=== PATIENT | female | born 1940 | race Caucasian/White ===

== ENCOUNTER 2019-11-29 12:55 | Inpatient (IN) ==
[2019-11-29] MEDS ORDERED: *HR* Dextrose 50 % in Water (Vial) 50 ML VIAL IVP PRN (23:23)
[2019-11-29] MEDS ORDERED: D5% in Water 1,000 ML IVC PRN (23:23)
[2019-11-29] MEDS ORDERED: Dextrose Gel 15 GM/37.5 ML TUBE PO PRN ×2 (23:23)
[2019-11-30] MEDS: *HR* OxyCODONE/APAP 5/325 TABLET PO PRN ×2 (05:12→13:56)
[2019-11-30 05:32] LABS: Basophils # 0.1 K/mcL (0.0-0.2); Basophils % 0.8 %; Eosinophils # 0.7 K/mcL (0.0-0.6); Eosinophils % 5.5 %; Hematocrit 29.7 % (35.3-44.9); Hemoglobin 9.5 g/dL (11.5-15.4); Immature Granulocytes % 3.6 % (0-4); Lymphocytes # 2.3 K/mcL (0.6-4.6); Lymphocytes % 16.8 %; Mean Corpuscular Hemoglobin 32.3 pg (28.0-33.3); Mean Platelet Volume 10.1 fL (9.4-12.4); Monocytes # 1.8 K/mcL (0.0-1.3); Neutrophils # 8.1 K/mcL (1.6-8.9); Nucleated Red Blood Cells 0.9 /100 WBC (0); Platelet Count 699 K/mcL (140-400); Red Blood Count 2.94 M/mcL (3.82-4.97); Red Cell Distribution Width 15.9 % (11.5-14.5); Segmented Neutrophils % 60.3 %; White Blood Count 13.5 K/mcL (4.3-11.1)
[2019-11-30 05:45] LABS: Calcium 8.7 mg/dL (8.6-10.3); Potassium 5.5 mEq/L (3.5-5.1)
[2019-11-30] MEDS: Primidone 50 MG TABLET PO SCH ×2 (07:54→20:50)
[2019-11-30] MEDS: Amoxicillin 500 MG CAPSULE PO SCH ×2 (07:54→20:50)
[2019-11-30] MEDS: Cholecalciferol (D-3) 1,000 UNIT (25MCG) TABLET PO SCH (07:54)
[2019-11-30] MEDS: Multivit/Ca/Min/Fe/FA 1 TAB TABLET PO SCH (07:54)
[2019-11-30] MEDS: *HR* Glimepiride 4 MG TABLET PO SCH (07:54)
[2019-11-30] MEDS: gemfibroziL 600 MG TABLET PO SCH ×2 (07:55→20:50)
[2019-11-30] MEDS: carvediloL 6.25 MG TABLET PO SCH ×2 (07:55→17:08)
[2019-11-30] MEDS: Folic Acid 1 MG TABLET PO SCH (07:55)
[2019-11-30] MEDS: Aspirin Enteric Coated 81 MG Tablet PO SCH (07:55)
[2019-11-30] MEDS: amLODIPine 5 MG TABLET PO SCH (07:55)
[2019-11-30] MEDS: Cyanocobalamin (B-12) 1,000 MCG TABLET PO SCH (07:56)
[2019-11-30] MEDS: Nystatin SUSP 5 ML UD.LIQ PO SCH ×3 (12:13→20:50)
[2019-11-30] MEDS ORDERED: Bisacodyl 10 MG RECTAL SUPPOSITORY RC PRN (16:08)
[2019-11-30] MEDS ORDERED: Lactulose Oral Soln 20 GM/30 ML UDC PO PRN (16:08)
[2019-11-30] MEDS: polyethylene glycoL 3350 17 GM POWD.PACK PO SCH (17:08)
[2019-11-30] MEDS: Insulin LISPRO 300 UNITS/3 ML VIAL SQ SCH ×2 (17:09→20:51)
[2019-11-30] MEDS: Sennosides/Docusate Sodium TABLET PO SCH (20:42)
[2019-12-01] MEDS: *HR* Enoxaparin 30 MG/0.3 ML SYRINGE SQ SCH (05:45)
[2019-12-01 05:53] LABS: Hematocrit 28.1 % (35.3-44.9); Hemoglobin 9.2 g/dL (11.5-15.4); Mean Corpuscular HGB Conc 32.7 g/dL (31.6-35.5); Mean Corpuscular Hemoglobin 32.7 pg (28.0-33.3); Mean Platelet Volume 9.8 fL (9.4-12.4); Platelet Count 662 K/mcL (140-400); Red Blood Count 2.81 M/mcL (3.82-4.97); Red Cell Distribution Width 15.6 % (11.5-14.5)
[2019-12-01 06:35] LABS: Calcium 8.1 mg/dL (8.6-10.3); Magnesium 1.9 mg/dL (1.6-2.6); Potassium 5.1 mEq/L (3.5-5.1)
[2019-12-01] MEDS: gemfibroziL 600 MG TABLET PO SCH ×2 (08:05→21:06)
[2019-12-01] MEDS: Sennosides/Docusate Sodium TABLET PO SCH ×2 (08:28→21:06)
[2019-12-01] MEDS: *HR* Glimepiride 4 MG TABLET PO SCH (08:28)
[2019-12-01] MEDS: Folic Acid 1 MG TABLET PO SCH (08:28)
[2019-12-01] MEDS: Aspirin Enteric Coated 81 MG Tablet PO SCH (08:28)
[2019-12-01] MEDS: Multivit/Ca/Min/Fe/FA 1 TAB TABLET PO SCH (08:28)
[2019-12-01] MEDS: carvediloL 6.25 MG TABLET PO SCH ×2 (08:28→18:08)
[2019-12-01] MEDS: Cyanocobalamin (B-12) 1,000 MCG TABLET PO SCH (08:28)
[2019-12-01] MEDS: Primidone 50 MG TABLET PO SCH ×2 (08:28→21:06)
[2019-12-01] MEDS: Amoxicillin 500 MG CAPSULE PO SCH (08:28)
[2019-12-01] MEDS: amLODIPine 5 MG TABLET PO SCH (08:29)
[2019-12-01] MEDS: Nystatin SUSP 5 ML UD.LIQ PO SCH ×4 (08:29→21:05)
[2019-12-01] MEDS: *HR* OxyCODONE/APAP 5/325 TABLET PO PRN ×2 (08:29→15:04)
[2019-12-01] MEDS: Cholecalciferol (D-3) 1,000 UNIT (25MCG) TABLET PO SCH (08:29)
[2019-12-01] MEDS: polyethylene glycoL 3350 17 GM POWD.PACK PO SCH (08:30)
[2019-12-01] MEDS: Insulin LISPRO 300 UNITS/3 ML VIAL SQ SCH ×4 (08:51→20:58)
[2019-12-02] MEDS: *HR* Enoxaparin 30 MG/0.3 ML SYRINGE SQ SCH (05:10)
[2019-12-02] MEDS: Insulin LISPRO 300 UNITS/3 ML VIAL SQ SCH ×4 (08:55→21:51)
[2019-12-02] MEDS: Aspirin Enteric Coated 81 MG Tablet PO SCH (09:16)
[2019-12-02] MEDS: Folic Acid 1 MG TABLET PO SCH (09:16)
[2019-12-02] MEDS: Primidone 50 MG TABLET PO SCH ×2 (09:16→21:51)
[2019-12-02] MEDS: amLODIPine 5 MG TABLET PO SCH (09:16)
[2019-12-02] MEDS: polyethylene glycoL 3350 17 GM POWD.PACK PO SCH (09:16)
[2019-12-02] MEDS: gemfibroziL 600 MG TABLET PO SCH ×2 (09:16→21:51)
[2019-12-02] MEDS: *HR* Glimepiride 4 MG TABLET PO SCH (09:16)
[2019-12-02] MEDS: *HR* OxyCODONE/APAP 5/325 TABLET PO PRN ×2 (09:16→14:28)
[2019-12-02] MEDS: Cholecalciferol (D-3) 1,000 UNIT (25MCG) TABLET PO SCH (09:16)
[2019-12-02] MEDS: Nystatin SUSP 5 ML UD.LIQ PO SCH ×4 (09:16→21:50)
[2019-12-02] MEDS: Sennosides/Docusate Sodium TABLET PO SCH ×2 (09:16→21:50)
[2019-12-02] MEDS: Multivit/Ca/Min/Fe/FA 1 TAB TABLET PO SCH (09:17)
[2019-12-02] MEDS: carvediloL 6.25 MG TABLET PO SCH ×2 (09:17→17:48)
[2019-12-02] MEDS: Cyanocobalamin (B-12) 1,000 MCG TABLET PO SCH (09:19)
[2019-12-03] MEDS: *HR* Enoxaparin 30 MG/0.3 ML SYRINGE SQ SCH (05:34)
[2019-12-03 06:04] LABS: Basophils # 0.1 K/mcL (0.0-0.2); Basophils % 0.8 %; Eosinophils # 0.7 K/mcL (0.0-0.6); Eosinophils % 6.8 %; Hematocrit 27.3 % (35.3-44.9); Hemoglobin 8.9 g/dL (11.5-15.4); Immature Granulocytes % 0.7 % (0-4); Lymphocytes # 1.9 K/mcL (0.6-4.6); Lymphocytes % 18.7 %; Mean Corpuscular HGB Conc 32.6 g/dL (31.6-35.5); Mean Corpuscular Hemoglobin 32.7 pg (28.0-33.3); Mean Corpuscular Volume 100.4 fL (83.0-100.0); Mean Platelet Volume 9.7 fL (9.4-12.4); Monocytes # 1.6 K/mcL (0.0-1.3); Monocytes % 15.4 %; Neutrophils # 5.9 K/mcL (1.6-8.9); Nucleated Red Blood Cells 0.4 /100 WBC (0); Platelet Count 651 K/mcL (140-400); Red Blood Count 2.72 M/mcL (3.82-4.97); Red Cell Distribution Width 15.9 % (11.5-14.5); Segmented Neutrophils % 57.6 %; White Blood Count 10.2 K/mcL (4.3-11.1)
[2019-12-03 06:23] LABS: Calcium 8.3 mg/dL (8.6-10.3); Potassium 4.9 mEq/L (3.5-5.1)
[2019-12-03] MEDS: Multivit/Ca/Min/Fe/FA 1 TAB TABLET PO SCH (08:58)
[2019-12-03] MEDS: *HR* Glimepiride 4 MG TABLET PO SCH (08:58)
[2019-12-03] MEDS: Cyanocobalamin (B-12) 1,000 MCG TABLET PO SCH (08:58)
[2019-12-03] MEDS: *HR* OxyCODONE/APAP 5/325 TABLET PO PRN ×3 (08:58→21:51)
[2019-12-03] MEDS: Aspirin Enteric Coated 81 MG Tablet PO SCH (08:59)
[2019-12-03] MEDS: Primidone 50 MG TABLET PO SCH ×2 (08:59→21:51)
[2019-12-03] MEDS: carvediloL 6.25 MG TABLET PO SCH ×2 (08:59→18:27)
[2019-12-03] MEDS: Cholecalciferol (D-3) 1,000 UNIT (25MCG) TABLET PO SCH (08:59)
[2019-12-03] MEDS: amLODIPine 5 MG TABLET PO SCH (08:59)
[2019-12-03] MEDS: Folic Acid 1 MG TABLET PO SCH (08:59)
[2019-12-03] MEDS: Insulin LISPRO 300 UNITS/3 ML VIAL SQ SCH ×4 (08:59→21:51)
[2019-12-03] MEDS: gemfibroziL 600 MG TABLET PO SCH ×2 (08:59→21:51)
[2019-12-03] MEDS: Sennosides/Docusate Sodium TABLET PO SCH ×2 (09:01→21:50)
[2019-12-03] MEDS: polyethylene glycoL 3350 17 GM POWD.PACK PO SCH (09:01)
[2019-12-03] MEDS: Nystatin SUSP 5 ML UD.LIQ PO SCH ×4 (09:01→21:50)
[2019-12-04] MEDS: *HR* Enoxaparin 30 MG/0.3 ML SYRINGE SQ SCH (05:13)
[2019-12-04 06:05] LABS: Hematocrit 28.3 % (35.3-44.9); Hemoglobin 9.1 g/dL (11.5-15.4); Mean Corpuscular HGB Conc 32.2 g/dL (31.6-35.5); Mean Corpuscular Hemoglobin 32.5 pg (28.0-33.3); Mean Corpuscular Volume 101.1 fL (83.0-100.0); Mean Platelet Volume 10.3 fL (9.4-12.4); Platelet Count 698 K/mcL (140-400); Red Cell Distribution Width 15.4 % (11.5-14.5)
[2019-12-04 06:20] LABS: Calcium 8.4 mg/dL (8.6-10.3); Potassium 4.8 mEq/L (3.5-5.1)
[2019-12-04] MEDS: Insulin LISPRO 300 UNITS/3 ML VIAL SQ SCH ×4 (07:47→21:43)
[2019-12-04] MEDS: Cyanocobalamin (B-12) 1,000 MCG TABLET PO SCH (09:24)
[2019-12-04] MEDS: Folic Acid 1 MG TABLET PO SCH (09:25)
[2019-12-04] MEDS: Cholecalciferol (D-3) 1,000 UNIT (25MCG) TABLET PO SCH (09:25)
[2019-12-04] MEDS: amLODIPine 5 MG TABLET PO SCH (09:26)
[2019-12-04] MEDS: Sennosides/Docusate Sodium TABLET PO SCH ×2 (09:26→21:42)
[2019-12-04] MEDS: Aspirin Enteric Coated 81 MG Tablet PO SCH (09:26)
[2019-12-04] MEDS: Primidone 50 MG TABLET PO SCH ×2 (09:26→21:42)
[2019-12-04] MEDS: carvediloL 6.25 MG TABLET PO SCH ×2 (09:26→16:39)
[2019-12-04] MEDS: Multivit/Ca/Min/Fe/FA 1 TAB TABLET PO SCH (09:26)
[2019-12-04] MEDS: *HR* Glimepiride 4 MG TABLET PO SCH (09:27)
[2019-12-04] MEDS: gemfibroziL 600 MG TABLET PO SCH ×2 (09:28→21:42)
[2019-12-04] MEDS: Nystatin SUSP 5 ML UD.LIQ PO SCH ×4 (09:28→21:42)
[2019-12-04] MEDS: polyethylene glycoL 3350 17 GM POWD.PACK PO SCH (09:29)
[2019-12-04] MEDS: *HR* OxyCODONE/APAP 5/325 TABLET PO PRN ×2 (10:27→16:39)
[2019-12-05] MEDS: *HR* OxyCODONE/APAP 5/325 TABLET PO PRN ×3 (04:10→14:08)
[2019-12-05] MEDS: *HR* Enoxaparin 30 MG/0.3 ML SYRINGE SQ SCH (04:12)
[2019-12-05] MEDS: gemfibroziL 600 MG TABLET PO SCH ×2 (09:20→20:56)
[2019-12-05] MEDS: Cholecalciferol (D-3) 1,000 UNIT (25MCG) TABLET PO SCH (09:20)
[2019-12-05] MEDS: Sennosides/Docusate Sodium TABLET PO SCH ×2 (09:20→20:56)
[2019-12-05] MEDS: Primidone 50 MG TABLET PO SCH ×2 (09:20→20:56)
[2019-12-05] MEDS: *HR* Glimepiride 4 MG TABLET PO SCH (09:20)
[2019-12-05] MEDS: Aspirin Enteric Coated 81 MG Tablet PO SCH (09:21)
[2019-12-05] MEDS: Multivit/Ca/Min/Fe/FA 1 TAB TABLET PO SCH (09:21)
[2019-12-05] MEDS: Cyanocobalamin (B-12) 1,000 MCG TABLET PO SCH (09:21)
[2019-12-05] MEDS: Nystatin SUSP 5 ML UD.LIQ PO SCH ×4 (09:21→20:56)
[2019-12-05] MEDS: Folic Acid 1 MG TABLET PO SCH (09:22)
[2019-12-05] MEDS: Insulin LISPRO 300 UNITS/3 ML VIAL SQ SCH ×4 (09:25→20:56)
[2019-12-05] MEDS: carvediloL 6.25 MG TABLET PO SCH ×2 (09:25→18:54)
[2019-12-05] MEDS: amLODIPine 5 MG TABLET PO SCH (09:46)
[2019-12-05] MEDS: polyethylene glycoL 3350 17 GM POWD.PACK PO SCH (09:46)
[2019-12-06] MEDS: Aspirin Enteric Coated 81 MG Tablet PO SCH (07:00)
[2019-12-06] MEDS: amLODIPine 5 MG TABLET PO SCH (07:00)
[2019-12-06] MEDS: Sennosides/Docusate Sodium TABLET PO SCH ×2 (07:00→20:32)
[2019-12-06] MEDS: Cyanocobalamin (B-12) 1,000 MCG TABLET PO SCH (07:01)
[2019-12-06] MEDS: carvediloL 6.25 MG TABLET PO SCH ×2 (07:01→16:32)
[2019-12-06] MEDS: Folic Acid 1 MG TABLET PO SCH (07:01)
[2019-12-06] MEDS: Cholecalciferol (D-3) 1,000 UNIT (25MCG) TABLET PO SCH (07:01)
[2019-12-06] MEDS: Primidone 50 MG TABLET PO SCH ×2 (07:01→20:33)
[2019-12-06] MEDS: *HR* Enoxaparin 30 MG/0.3 ML SYRINGE SQ SCH (07:01)
[2019-12-06] MEDS: Nystatin SUSP 5 ML UD.LIQ PO SCH ×4 (07:01→20:33)
[2019-12-06] MEDS: Multivit/Ca/Min/Fe/FA 1 TAB TABLET PO SCH (07:01)
[2019-12-06] MEDS: gemfibroziL 600 MG TABLET PO SCH ×2 (07:01→20:33)
[2019-12-06] MEDS: *HR* OxyCODONE/APAP 5/325 TABLET PO PRN ×3 (07:02→17:51)
[2019-12-06] MEDS: Insulin LISPRO 300 UNITS/3 ML VIAL SQ SCH ×4 (07:31→20:28)
[2019-12-06] MEDS: polyethylene glycoL 3350 17 GM POWD.PACK PO SCH (07:46)
[2019-12-06] MEDS: *HR* Glimepiride 4 MG TABLET PO SCH (07:46)
[2019-12-07] MEDS: *HR* Enoxaparin 30 MG/0.3 ML SYRINGE SQ SCH (05:01)
[2019-12-07] MEDS: Sennosides/Docusate Sodium TABLET PO SCH ×2 (09:18→21:08)
[2019-12-07] MEDS: gemfibroziL 600 MG TABLET PO SCH ×2 (09:18→21:08)
[2019-12-07] MEDS: Nystatin SUSP 5 ML UD.LIQ PO SCH ×4 (09:19→21:08)
[2019-12-07] MEDS: *HR* Glimepiride 4 MG TABLET PO SCH (09:19)
[2019-12-07] MEDS: amLODIPine 5 MG TABLET PO SCH (09:19)
[2019-12-07] MEDS: carvediloL 6.25 MG TABLET PO SCH ×2 (09:19→17:42)
[2019-12-07] MEDS: Multivit/Ca/Min/Fe/FA 1 TAB TABLET PO SCH (09:19)
[2019-12-07] MEDS: Aspirin Enteric Coated 81 MG Tablet PO SCH (09:19)
[2019-12-07] MEDS: Folic Acid 1 MG TABLET PO SCH (09:19)
[2019-12-07] MEDS: Primidone 50 MG TABLET PO SCH ×2 (09:19→21:08)
[2019-12-07] MEDS: Cyanocobalamin (B-12) 1,000 MCG TABLET PO SCH (09:19)
[2019-12-07] MEDS: polyethylene glycoL 3350 17 GM POWD.PACK PO SCH (09:20)
[2019-12-07] MEDS: Cholecalciferol (D-3) 1,000 UNIT (25MCG) TABLET PO SCH (09:20)
[2019-12-07] MEDS: Insulin LISPRO 300 UNITS/3 ML VIAL SQ SCH ×4 (09:20→21:09)
[2019-12-07] MEDS: *HR* OxyCODONE/APAP 5/325 TABLET PO PRN ×2 (09:59→14:55)
[2019-12-07 14:13] LABS: Bilirubin,Urine Negative (Negative); Blood,Urine Trace-lysed (Negative); Clarity,Urine Clear (Clear); Color,Urine Yellow (Yellow); Glucose,Urine (UA) Normal (Normal); Ketones,Urine Negative (Negative); Leukocyte Esterase,Urine Small (Negative); Nitrite,Urine Negative (Negative); Protein,Urine >=300 mg/dL (Neg-Trace); Specific Gravity,Urine 1.015 (1.010-1.025); Urobilinogen,Urine Normal (Normal)
[2019-12-07 14:15] LABS: RBC,Urine 0-3 per hpf (0-3); WBC,Urine 50-100 per hpf (0-3)
[2019-12-07 14:16] LABS: Bacteria,Urine Moderate per hpf (None-Few); Squamous Epithelial Cell,Urine Few per hpf (None-Few)
[2019-12-07] MEDS: Sulfamethoxazole/Trimeth DS 1 EACH TABLET PO SCH (21:08)
[2019-12-08] MEDS: *HR* Enoxaparin 40 MG/0.4 ML SYRINGE SQ SCH (06:13)
[2019-12-08] MEDS: *HR* Glimepiride 4 MG TABLET PO SCH (10:06)
[2019-12-08] MEDS: Nystatin SUSP 5 ML UD.LIQ PO SCH ×4 (10:06→21:14)
[2019-12-08] MEDS: *HR* OxyCODONE/APAP 5/325 TABLET PO PRN ×2 (10:07→14:15)
[2019-12-08] MEDS: Primidone 50 MG TABLET PO SCH ×2 (10:07→21:14)
[2019-12-08] MEDS: Sennosides/Docusate Sodium TABLET PO SCH ×2 (10:07→21:15)
[2019-12-08] MEDS: Sulfamethoxazole/Trimeth DS 1 EACH TABLET PO SCH ×2 (10:07→21:14)
[2019-12-08] MEDS: Folic Acid 1 MG TABLET PO SCH (10:07)
[2019-12-08] MEDS: carvediloL 6.25 MG TABLET PO SCH ×2 (10:07→18:01)
[2019-12-08] MEDS: amLODIPine 5 MG TABLET PO SCH (10:07)
[2019-12-08] MEDS: Multivit/Ca/Min/Fe/FA 1 TAB TABLET PO SCH (10:07)
[2019-12-08] MEDS: Aspirin Enteric Coated 81 MG Tablet PO SCH (10:09)
[2019-12-08] MEDS: gemfibroziL 600 MG TABLET PO SCH ×2 (10:09→21:14)
[2019-12-08] MEDS: Insulin LISPRO 300 UNITS/3 ML VIAL SQ SCH ×4 (10:09→21:15)
[2019-12-08] MEDS: Cyanocobalamin (B-12) 1,000 MCG TABLET PO SCH (10:09)
[2019-12-08] MEDS: polyethylene glycoL 3350 17 GM POWD.PACK PO SCH (10:11)
[2019-12-08] MEDS: Cholecalciferol (D-3) 1,000 UNIT (25MCG) TABLET PO SCH (10:12)
[2019-12-09] MEDS: *HR* Enoxaparin 40 MG/0.4 ML SYRINGE SQ SCH (05:11)
[2019-12-09 05:18] LABS: Basophils # 0.1 K/mcL (0.0-0.2); Basophils % 1.2 %; Eosinophils # 0.7 K/mcL (0.0-0.6); Eosinophils % 8.3 %; Hemoglobin 9.1 g/dL (11.5-15.4); Immature Granulocytes % 0.6 % (0-4); Lymphocytes # 1.8 K/mcL (0.6-4.6); Mean Corpuscular HGB Conc 32.5 g/dL (31.6-35.5); Mean Corpuscular Hemoglobin 32.6 pg (28.0-33.3); Mean Corpuscular Volume 100.4 fL (83.0-100.0); Mean Platelet Volume 10.2 fL (9.4-12.4); Monocytes # 1.2 K/mcL (0.0-1.3); Monocytes % 14.4 %; Neutrophils # 4.7 K/mcL (1.6-8.9); Nucleated Red Blood Cells 0.2 /100 WBC (0); Platelet Count 710 K/mcL (140-400); Red Blood Count 2.79 M/mcL (3.82-4.97); Red Cell Distribution Width 15.1 % (11.5-14.5); Segmented Neutrophils % 54.5 %; White Blood Count 8.6 K/mcL (4.3-11.1)
[2019-12-09 05:36] LABS: Calcium 8.6 mg/dL (8.6-10.3); Potassium 5.2 mEq/L (3.5-5.1)
[2019-12-09] MEDS: Insulin LISPRO 300 UNITS/3 ML VIAL SQ SCH ×3 (08:24→17:37)
[2019-12-09] MEDS: polyethylene glycoL 3350 17 GM POWD.PACK PO SCH (08:32)
[2019-12-09] MEDS: Cholecalciferol (D-3) 1,000 UNIT (25MCG) TABLET PO SCH (08:33)
[2019-12-09] MEDS: Folic Acid 1 MG TABLET PO SCH (08:33)
[2019-12-09] MEDS: Primidone 50 MG TABLET PO SCH (08:33)
[2019-12-09] MEDS: Sulfamethoxazole/Trimeth DS 1 EACH TABLET PO SCH (08:33)
[2019-12-09] MEDS: Multivit/Ca/Min/Fe/FA 1 TAB TABLET PO SCH (08:33)
[2019-12-09] MEDS: Cyanocobalamin (B-12) 1,000 MCG TABLET PO SCH (08:33)
[2019-12-09] MEDS: *HR* Glimepiride 4 MG TABLET PO SCH (08:33)
[2019-12-09] MEDS: gemfibroziL 600 MG TABLET PO SCH (08:33)
[2019-12-09] MEDS: carvediloL 6.25 MG TABLET PO SCH ×2 (08:34→17:43)
[2019-12-09] MEDS: amLODIPine 5 MG TABLET PO SCH (08:34)
[2019-12-09] MEDS: Aspirin Enteric Coated 81 MG Tablet PO SCH (08:34)
[2019-12-09] MEDS: Nystatin SUSP 5 ML UD.LIQ PO SCH ×3 (08:34→17:43)
[2019-12-09] MEDS: Sennosides/Docusate Sodium TABLET PO SCH (08:34)
[2019-12-09] MEDS: *HR* OxyCODONE/APAP 5/325 TABLET PO PRN ×2 (08:52→13:07)
[2019-12-09] MEDS: Linezolid 600 MG TABLET PO SCH (12:21)
[2019-12-10] MEDS: Sennosides/Docusate Sodium TABLET PO SCH ×3 (00:10→21:22)
[2019-12-10] MEDS: Nystatin SUSP 5 ML UD.LIQ PO SCH ×5 (00:10→21:21)
[2019-12-10] MEDS: Primidone 50 MG TABLET PO SCH ×3 (00:10→21:21)
[2019-12-10] MEDS: Linezolid 600 MG TABLET PO SCH ×3 (00:10→21:20)
[2019-12-10] MEDS: gemfibroziL 600 MG TABLET PO SCH ×3 (00:10→21:21)
[2019-12-10] MEDS: Insulin LISPRO 300 UNITS/3 ML VIAL SQ SCH ×5 (00:10→21:12)
[2019-12-10] MEDS: *HR* Enoxaparin 40 MG/0.4 ML SYRINGE SQ SCH (05:37)
[2019-12-10] MEDS: Cholecalciferol (D-3) 1,000 UNIT (25MCG) TABLET PO SCH (09:34)
[2019-12-10] MEDS: carvediloL 6.25 MG TABLET PO SCH ×2 (09:34→17:39)
[2019-12-10] MEDS: Aspirin Enteric Coated 81 MG Tablet PO SCH (09:34)
[2019-12-10] MEDS: Multivit/Ca/Min/Fe/FA 1 TAB TABLET PO SCH (09:34)
[2019-12-10] MEDS: amLODIPine 5 MG TABLET PO SCH (09:34)
[2019-12-10] MEDS: Folic Acid 1 MG TABLET PO SCH (09:35)
[2019-12-10] MEDS: *HR* Glimepiride 4 MG TABLET PO SCH (09:35)
[2019-12-10] MEDS: Cyanocobalamin (B-12) 1,000 MCG TABLET PO SCH (09:35)
[2019-12-10] MEDS: polyethylene glycoL 3350 17 GM POWD.PACK PO SCH (09:38)
[2019-12-10] MEDS: *HR* OxyCODONE/APAP 5/325 TABLET PO PRN ×2 (10:07→14:47)
[2019-12-10] MEDS ORDERED: Ondansetron ODT 4 MG TAB.RAPDIS SL PRN (10:36)
[2019-12-10 12:19] LABS: Potassium 5.3 mEq/L (3.5-5.1)
[2019-12-11] MEDS: *HR* Enoxaparin 30 MG/0.3 ML SYRINGE SQ SCH (05:34)
[2019-12-11] MEDS: Insulin LISPRO 300 UNITS/3 ML VIAL SQ SCH ×4 (07:50→20:55)
[2019-12-11] MEDS: Cyanocobalamin (B-12) 1,000 MCG TABLET PO SCH (08:03)
[2019-12-11] MEDS: polyethylene glycoL 3350 17 GM POWD.PACK PO SCH (08:03)
[2019-12-11] MEDS: Linezolid 600 MG TABLET PO SCH ×2 (08:03→20:55)
[2019-12-11] MEDS: Aspirin Enteric Coated 81 MG Tablet PO SCH (08:03)
[2019-12-11] MEDS: carvediloL 6.25 MG TABLET PO SCH ×2 (08:03→17:25)
[2019-12-11] MEDS: gemfibroziL 600 MG TABLET PO SCH ×2 (08:03→20:55)
[2019-12-11] MEDS: Primidone 50 MG TABLET PO SCH ×2 (08:03→20:55)
[2019-12-11] MEDS: Nystatin SUSP 5 ML UD.LIQ PO SCH ×4 (08:03→20:55)
[2019-12-11] MEDS: amLODIPine 5 MG TABLET PO SCH (08:04)
[2019-12-11] MEDS: Folic Acid 1 MG TABLET PO SCH (08:04)
[2019-12-11] MEDS: *HR* Glimepiride 4 MG TABLET PO SCH (08:04)
[2019-12-11] MEDS: Cholecalciferol (D-3) 1,000 UNIT (25MCG) TABLET PO SCH (08:04)
[2019-12-11] MEDS: Multivit/Ca/Min/Fe/FA 1 TAB TABLET PO SCH (08:04)
[2019-12-11] MEDS: Sennosides/Docusate Sodium TABLET PO SCH ×2 (08:04→20:55)
[2019-12-11] MEDS: *HR* OxyCODONE/APAP 5/325 TABLET PO PRN ×2 (09:22→14:12)
[2019-12-11 13:02] LABS: Calcium 8.8 mg/dL (8.6-10.3)
[2019-12-12] MEDS: *HR* Enoxaparin 30 MG/0.3 ML SYRINGE SQ SCH (04:41)
[2019-12-12 05:38] LABS: Calcium 8.9 mg/dL (8.6-10.3); Potassium 5.3 mEq/L (3.5-5.1)
[2019-12-12] MEDS: Folic Acid 1 MG TABLET PO SCH (08:45)
[2019-12-12] MEDS: Nystatin SUSP 5 ML UD.LIQ PO SCH ×4 (08:45→21:44)
[2019-12-12] MEDS: Linezolid 600 MG TABLET PO SCH (08:45)
[2019-12-12] MEDS: Sennosides/Docusate Sodium TABLET PO SCH ×2 (08:45→21:44)
[2019-12-12] MEDS: carvediloL 6.25 MG TABLET PO SCH ×2 (08:45→17:06)
[2019-12-12] MEDS: gemfibroziL 600 MG TABLET PO SCH ×2 (08:45→21:44)
[2019-12-12] MEDS: amLODIPine 5 MG TABLET PO SCH (08:45)
[2019-12-12] MEDS: *HR* Glimepiride 4 MG TABLET PO SCH (08:46)
[2019-12-12] MEDS: polyethylene glycoL 3350 17 GM POWD.PACK PO SCH (08:46)
[2019-12-12] MEDS: Aspirin Enteric Coated 81 MG Tablet PO SCH (08:46)
[2019-12-12] MEDS: Cyanocobalamin (B-12) 1,000 MCG TABLET PO SCH (08:46)
[2019-12-12] MEDS: Multivit/Ca/Min/Fe/FA 1 TAB TABLET PO SCH (08:46)
[2019-12-12] MEDS: Insulin LISPRO 300 UNITS/3 ML VIAL SQ SCH ×4 (08:46→21:45)
[2019-12-12] MEDS: *HR* OxyCODONE/APAP 5/325 TABLET PO PRN ×2 (08:46→12:48)
[2019-12-12] MEDS: Primidone 50 MG TABLET PO SCH ×2 (08:46→21:44)
[2019-12-12] MEDS: Cholecalciferol (D-3) 1,000 UNIT (25MCG) TABLET PO SCH (08:47)
[2019-12-12] MEDS ORDERED: SODIUM ZIRCONIUM CYCLOSILICATE 5 GM POWD.PACK PO SCH (10:45)
[2019-12-12] MEDS: Amoxicillin 500 MG CAPSULE PO SCH (17:06)
[2019-12-13] MEDS: Amoxicillin 500 MG CAPSULE PO SCH ×4 (00:55→23:57)
[2019-12-13 05:27] LABS: Hematocrit 29.2 % (35.3-44.9); Hemoglobin 9.4 g/dL (11.5-15.4); Mean Corpuscular HGB Conc 32.2 g/dL (31.6-35.5); Mean Corpuscular Hemoglobin 32.3 pg (28.0-33.3); Mean Corpuscular Volume 100.3 fL (83.0-100.0); Mean Platelet Volume 10.1 fL (9.4-12.4); Platelet Count 663 K/mcL (140-400); Red Blood Count 2.91 M/mcL (3.82-4.97); Red Cell Distribution Width 14.7 % (11.5-14.5)
[2019-12-13 05:41] LABS: Calcium 8.8 mg/dL (8.6-10.3); Magnesium 1.8 mg/dL (1.6-2.6); Potassium 5.2 mEq/L (3.5-5.1)
[2019-12-13] MEDS: *HR* Enoxaparin 30 MG/0.3 ML SYRINGE SQ SCH (05:41)
[2019-12-13] MEDS: Multivit/Ca/Min/Fe/FA 1 TAB TABLET PO SCH (08:23)
[2019-12-13] MEDS: Cholecalciferol (D-3) 1,000 UNIT (25MCG) TABLET PO SCH (08:23)
[2019-12-13] MEDS: gemfibroziL 600 MG TABLET PO SCH ×2 (08:23→20:04)
[2019-12-13] MEDS: *HR* OxyCODONE/APAP 5/325 TABLET PO PRN ×2 (08:24→14:34)
[2019-12-13] MEDS: Primidone 50 MG TABLET PO SCH ×2 (08:24→20:04)
[2019-12-13] MEDS: Folic Acid 1 MG TABLET PO SCH (08:24)
[2019-12-13] MEDS: carvediloL 6.25 MG TABLET PO SCH ×2 (08:24→17:13)
[2019-12-13] MEDS: Nystatin SUSP 5 ML UD.LIQ PO SCH ×4 (08:24→20:04)
[2019-12-13] MEDS: *HR* Glimepiride 4 MG TABLET PO SCH (08:24)
[2019-12-13] MEDS: Aspirin Enteric Coated 81 MG Tablet PO SCH (08:24)
[2019-12-13] MEDS: amLODIPine 5 MG TABLET PO SCH (08:25)
[2019-12-13] MEDS: Cyanocobalamin (B-12) 1,000 MCG TABLET PO SCH (08:25)
[2019-12-13] MEDS: Sennosides/Docusate Sodium TABLET PO SCH ×2 (08:41→20:04)
[2019-12-13] MEDS: polyethylene glycoL 3350 17 GM POWD.PACK PO SCH (08:41)
[2019-12-13] MEDS: Insulin LISPRO 300 UNITS/3 ML VIAL SQ SCH ×4 (08:43→20:04)
[2019-12-13] MEDS: tiZANidine 4 MG TABLET PO SCH (20:04)
[2019-12-14] MEDS: *HR* Enoxaparin 30 MG/0.3 ML SYRINGE SQ SCH (05:38)
[2019-12-14] MEDS: *HR* OxyCODONE/APAP 5/325 TABLET PO PRN ×3 (05:38→12:24)
[2019-12-14] MEDS: Insulin LISPRO 300 UNITS/3 ML VIAL SQ SCH ×4 (07:42→21:17)
[2019-12-14] MEDS: Cholecalciferol (D-3) 1,000 UNIT (25MCG) TABLET PO SCH (09:05)
[2019-12-14] MEDS: Aspirin Enteric Coated 81 MG Tablet PO SCH (09:06)
[2019-12-14] MEDS: Primidone 50 MG TABLET PO SCH ×2 (09:06→21:25)
[2019-12-14] MEDS: carvediloL 6.25 MG TABLET PO SCH ×2 (09:06→16:43)
[2019-12-14] MEDS: Nystatin SUSP 5 ML UD.LIQ PO SCH ×2 (09:06→12:30)
[2019-12-14] MEDS: Multivit/Ca/Min/Fe/FA 1 TAB TABLET PO SCH (09:06)
[2019-12-14] MEDS: *HR* Glimepiride 4 MG TABLET PO SCH (09:06)
[2019-12-14] MEDS: Folic Acid 1 MG TABLET PO SCH (09:06)
[2019-12-14] MEDS: Amoxicillin 500 MG CAPSULE PO SCH ×2 (09:06→15:00)
[2019-12-14] MEDS: polyethylene glycoL 3350 17 GM POWD.PACK PO SCH (09:06)
[2019-12-14] MEDS: Sennosides/Docusate Sodium TABLET PO SCH ×2 (09:06→21:27)
[2019-12-14] MEDS: amLODIPine 5 MG TABLET PO SCH (09:06)
[2019-12-14] MEDS: gemfibroziL 600 MG TABLET PO SCH ×2 (09:06→21:24)
[2019-12-14] MEDS: Cyanocobalamin (B-12) 1,000 MCG TABLET PO SCH (09:06)
[2019-12-14 11:49] LABS: Basophils # 0.1 K/mcL (0.0-0.2); Basophils % 0.9 %; Eosinophils # 0.6 K/mcL (0.0-0.6); Hematocrit 30.1 % (35.3-44.9); Hemoglobin 9.9 g/dL (11.5-15.4); Immature Granulocytes % 0.8 % (0-4); Lymphocytes # 0.8 K/mcL (0.6-4.6); Lymphocytes % 6.4 %; Mean Corpuscular HGB Conc 32.9 g/dL (31.6-35.5); Mean Corpuscular Hemoglobin 32.8 pg (28.0-33.3); Mean Corpuscular Volume 99.7 fL (83.0-100.0); Mean Platelet Volume 10.4 fL (9.4-12.4); Monocytes % 7.9 %; Neutrophils # 10.1 K/mcL (1.6-8.9); Platelet Count 663 K/mcL (140-400); Red Blood Count 3.02 M/mcL (3.82-4.97); White Blood Count 12.8 K/mcL (4.3-11.1)
[2019-12-14 12:20] LABS: Calcium 8.7 mg/dL (8.6-10.3); Potassium 4.8 mEq/L (3.5-5.1)
[2019-12-14] MEDS ORDERED: Fosfomycin Tromethamine 3 GM Packet PO ONE (16:00)
[2019-12-14] MEDS: tiZANidine 4 MG TABLET PO SCH (21:24)
[2019-12-15] MEDS: *HR* Enoxaparin 30 MG/0.3 ML SYRINGE SQ SCH (04:47)
[2019-12-15] MEDS: *HR* OxyCODONE/APAP 5/325 TABLET PO PRN ×4 (05:30→19:59)
[2019-12-15 05:57] LABS: Basophils # 0.1 K/mcL (0.0-0.2); Basophils % 0.9 %; Eosinophils % 10.4 %; Hematocrit 29.8 % (35.3-44.9); Hemoglobin 9.6 g/dL (11.5-15.4); Immature Granulocytes % 0.4 % (0-4); Lymphocytes # 1.6 K/mcL (0.6-4.6); Lymphocytes % 16.3 %; Mean Corpuscular HGB Conc 32.2 g/dL (31.6-35.5); Mean Corpuscular Hemoglobin 32.2 pg (28.0-33.3); Mean Platelet Volume 9.9 fL (9.4-12.4); Monocytes # 1.4 K/mcL (0.0-1.3); Monocytes % 14.3 %; Neutrophils # 5.8 K/mcL (1.6-8.9); Platelet Count 600 K/mcL (140-400); Red Blood Count 2.98 M/mcL (3.82-4.97); Red Cell Distribution Width 14.8 % (11.5-14.5); Segmented Neutrophils % 57.7 %
[2019-12-15 06:31] LABS: Albumin 3.2 g/dL (3.5-5.7); Albumin/Globulin Ratio 1.1 (1.1-2.2); Bilirubin,Total 0.3 mg/dL (0.3-1.0); Calcium 8.9 mg/dL (8.6-10.3); Potassium 4.5 mEq/L (3.5-5.1); Total Protein 6.2 g/dL (6.4-8.9)
[2019-12-15] MEDS: Insulin LISPRO 300 UNITS/3 ML VIAL SQ SCH ×4 (08:52→19:59)
[2019-12-15] MEDS: Primidone 50 MG TABLET PO SCH ×2 (08:54→19:57)
[2019-12-15] MEDS: Cyanocobalamin (B-12) 1,000 MCG TABLET PO SCH (08:54)
[2019-12-15] MEDS: *HR* Glimepiride 4 MG TABLET PO SCH (08:54)
[2019-12-15] MEDS: gemfibroziL 600 MG TABLET PO SCH ×2 (08:54→19:55)
[2019-12-15] MEDS: Cholecalciferol (D-3) 1,000 UNIT (25MCG) TABLET PO SCH (08:54)
[2019-12-15] MEDS: Aspirin Enteric Coated 81 MG Tablet PO SCH (08:54)
[2019-12-15] MEDS: amLODIPine 5 MG TABLET PO SCH (08:54)
[2019-12-15] MEDS: Multivit/Ca/Min/Fe/FA 1 TAB TABLET PO SCH (08:54)
[2019-12-15] MEDS: carvediloL 6.25 MG TABLET PO SCH ×2 (08:55→17:36)
[2019-12-15] MEDS: Folic Acid 1 MG TABLET PO SCH (08:55)
[2019-12-15] MEDS: polyethylene glycoL 3350 17 GM POWD.PACK PO SCH (08:55)
[2019-12-15] MEDS: Sennosides/Docusate Sodium TABLET PO SCH ×2 (08:55→19:57)
[2019-12-15] MEDS: tiZANidine 4 MG TABLET PO SCH (19:57)
[2019-12-16] MEDS: *HR* Enoxaparin 30 MG/0.3 ML SYRINGE SQ SCH (04:48)
[2019-12-16] MEDS: *HR* OxyCODONE/APAP 5/325 TABLET PO PRN ×3 (07:13→17:54)
[2019-12-16] MEDS: Insulin LISPRO 300 UNITS/3 ML VIAL SQ SCH ×4 (07:26→20:27)
[2019-12-16] MEDS: Folic Acid 1 MG TABLET PO SCH (07:37)
[2019-12-16] MEDS: Aspirin Enteric Coated 81 MG Tablet PO SCH (07:37)
[2019-12-16] MEDS: gemfibroziL 600 MG TABLET PO SCH ×2 (07:37→20:36)
[2019-12-16] MEDS: Multivit/Ca/Min/Fe/FA 1 TAB TABLET PO SCH (07:37)
[2019-12-16] MEDS: amLODIPine 5 MG TABLET PO SCH (07:37)
[2019-12-16] MEDS: carvediloL 6.25 MG TABLET PO SCH ×2 (07:38→16:35)
[2019-12-16] MEDS: *HR* Glimepiride 4 MG TABLET PO SCH (07:38)
[2019-12-16] MEDS: Primidone 50 MG TABLET PO SCH ×2 (07:38→20:35)
[2019-12-16] MEDS: Cyanocobalamin (B-12) 1,000 MCG TABLET PO SCH (07:38)
[2019-12-16] MEDS: Cholecalciferol (D-3) 1,000 UNIT (25MCG) TABLET PO SCH (07:38)
[2019-12-16] MEDS: Sennosides/Docusate Sodium TABLET PO SCH ×2 (07:38→20:35)
[2019-12-16] MEDS: polyethylene glycoL 3350 17 GM POWD.PACK PO SCH (07:38)
[2019-12-16] MEDS: tiZANidine 4 MG TABLET PO SCH (20:35)
[2019-12-17] MEDS: *HR* Enoxaparin 30 MG/0.3 ML SYRINGE SQ SCH (04:38)
[2019-12-17] MEDS: polyethylene glycoL 3350 17 GM POWD.PACK PO SCH (08:28)
[2019-12-17] MEDS: *HR* OxyCODONE/APAP 5/325 TABLET PO PRN ×2 (08:28→15:06)
[2019-12-17] MEDS: Cholecalciferol (D-3) 1,000 UNIT (25MCG) TABLET PO SCH (08:28)
[2019-12-17] MEDS: Primidone 50 MG TABLET PO SCH ×2 (08:28→22:45)
[2019-12-17] MEDS: Sennosides/Docusate Sodium TABLET PO SCH ×2 (08:28→22:44)
[2019-12-17] MEDS: Folic Acid 1 MG TABLET PO SCH (08:28)
[2019-12-17] MEDS: carvediloL 6.25 MG TABLET PO SCH ×2 (08:28→17:14)
[2019-12-17] MEDS: amLODIPine 5 MG TABLET PO SCH (08:28)
[2019-12-17] MEDS: gemfibroziL 600 MG TABLET PO SCH ×2 (08:29→22:44)
[2019-12-17] MEDS: Insulin LISPRO 300 UNITS/3 ML VIAL SQ SCH ×4 (08:29→23:08)
[2019-12-17] MEDS: Aspirin Enteric Coated 81 MG Tablet PO SCH (08:29)
[2019-12-17] MEDS: Cyanocobalamin (B-12) 1,000 MCG TABLET PO SCH (08:29)
[2019-12-17] MEDS: *HR* Glimepiride 4 MG TABLET PO SCH (08:29)
[2019-12-17] MEDS: Multivit/Ca/Min/Fe/FA 1 TAB TABLET PO SCH (08:29)
[2019-12-17] MEDS: tiZANidine 4 MG TABLET PO PRN ×2 (11:16→17:14)
[2019-12-17] MEDS: tiZANidine 4 MG TABLET PO SCH (22:42)
[2019-12-18 05:32] LABS: Hematocrit 28.3 % (35.3-44.9); Mean Corpuscular HGB Conc 31.8 g/dL (31.6-35.5); Mean Corpuscular Hemoglobin 31.9 pg (28.0-33.3); Mean Corpuscular Volume 100.4 fL (83.0-100.0); Mean Platelet Volume 9.4 fL (9.4-12.4); Platelet Count 622 K/mcL (140-400); Red Blood Count 2.82 M/mcL (3.82-4.97); Red Cell Distribution Width 14.7 % (11.5-14.5); White Blood Count 11.2 K/mcL (4.3-11.1)
[2019-12-18] MEDS: *HR* Enoxaparin 30 MG/0.3 ML SYRINGE SQ SCH (05:35)
[2019-12-18 05:50] LABS: Calcium 8.8 mg/dL (8.6-10.3); Magnesium 1.8 mg/dL (1.6-2.6)
[2019-12-18] MEDS: Cyanocobalamin (B-12) 1,000 MCG TABLET PO SCH (09:19)
[2019-12-18] MEDS: Folic Acid 1 MG TABLET PO SCH (09:19)
[2019-12-18] MEDS: Cholecalciferol (D-3) 1,000 UNIT (25MCG) TABLET PO SCH (09:20)
[2019-12-18] MEDS: *HR* OxyCODONE/APAP 5/325 TABLET PO PRN ×2 (09:20→19:36)
[2019-12-18] MEDS: *HR* Glimepiride 4 MG TABLET PO SCH (09:20)
[2019-12-18] MEDS: amLODIPine 5 MG TABLET PO SCH (09:20)
[2019-12-18] MEDS: carvediloL 6.25 MG TABLET PO SCH ×2 (09:20→16:31)
[2019-12-18] MEDS: Sennosides/Docusate Sodium TABLET PO SCH (09:20)
[2019-12-18] MEDS: Multivit/Ca/Min/Fe/FA 1 TAB TABLET PO SCH (09:20)
[2019-12-18] MEDS: Aspirin Enteric Coated 81 MG Tablet PO SCH (09:21)
[2019-12-18] MEDS: gemfibroziL 600 MG TABLET PO SCH ×2 (09:21→19:37)
[2019-12-18] MEDS: Insulin LISPRO 300 UNITS/3 ML VIAL SQ SCH ×3 (09:21→16:31)
[2019-12-18] MEDS: polyethylene glycoL 3350 17 GM POWD.PACK PO SCH (09:22)
[2019-12-18] MEDS: Primidone 50 MG TABLET PO SCH ×2 (09:35→19:38)
[2019-12-18] MEDS: tiZANidine 4 MG TABLET PO PRN (13:41)
[2019-12-18] MEDS: tiZANidine 4 MG TABLET PO SCH (23:47)
[2019-12-19] MEDS: Insulin LISPRO 300 UNITS/3 ML VIAL SQ SCH ×5 (01:18→21:09)
[2019-12-19] MEDS: Sennosides/Docusate Sodium TABLET PO SCH ×3 (01:19→21:08)
[2019-12-19] MEDS: *HR* Enoxaparin 30 MG/0.3 ML SYRINGE SQ SCH (05:17)
[2019-12-19] MEDS: Folic Acid 1 MG TABLET PO SCH (09:59)
[2019-12-19] MEDS: Multivit/Ca/Min/Fe/FA 1 TAB TABLET PO SCH (09:59)
[2019-12-19] MEDS: Cholecalciferol (D-3) 1,000 UNIT (25MCG) TABLET PO SCH (09:59)
[2019-12-19] MEDS: Primidone 50 MG TABLET PO SCH ×2 (09:59→21:07)
[2019-12-19] MEDS: amLODIPine 5 MG TABLET PO SCH (09:59)
[2019-12-19] MEDS: *HR* OxyCODONE/APAP 5/325 TABLET PO PRN (09:59)
[2019-12-19] MEDS: carvediloL 6.25 MG TABLET PO SCH ×2 (09:59→17:14)
[2019-12-19] MEDS: Cyanocobalamin (B-12) 1,000 MCG TABLET PO SCH (09:59)
[2019-12-19] MEDS: *HR* Glimepiride 4 MG TABLET PO SCH (09:59)
[2019-12-19] MEDS: polyethylene glycoL 3350 17 GM POWD.PACK PO SCH (10:00)
[2019-12-19] MEDS: Aspirin Enteric Coated 81 MG Tablet PO SCH (10:00)
[2019-12-19] MEDS: gemfibroziL 600 MG TABLET PO SCH ×2 (10:03→21:07)
[2019-12-19] MEDS: tiZANidine 4 MG TABLET PO PRN (13:40)
[2019-12-19] MEDS: tiZANidine 4 MG TABLET PO SCH (21:08)
[2019-12-20] MEDS: *HR* Enoxaparin 30 MG/0.3 ML SYRINGE SQ SCH (05:33)
[2019-12-20] MEDS: Insulin LISPRO 300 UNITS/3 ML VIAL SQ SCH ×4 (07:41→20:08)
[2019-12-20] MEDS: amLODIPine 5 MG TABLET PO SCH (08:19)
[2019-12-20] MEDS: Aspirin Enteric Coated 81 MG Tablet PO SCH (08:19)
[2019-12-20] MEDS: Cyanocobalamin (B-12) 1,000 MCG TABLET PO SCH (08:19)
[2019-12-20] MEDS: carvediloL 6.25 MG TABLET PO SCH ×2 (08:19→17:33)
[2019-12-20] MEDS: *HR* Glimepiride 4 MG TABLET PO SCH (08:19)
[2019-12-20] MEDS: Multivit/Ca/Min/Fe/FA 1 TAB TABLET PO SCH (08:20)
[2019-12-20] MEDS: Primidone 50 MG TABLET PO SCH ×2 (08:20→20:09)
[2019-12-20] MEDS: polyethylene glycoL 3350 17 GM POWD.PACK PO SCH (08:20)
[2019-12-20] MEDS: Cholecalciferol (D-3) 1,000 UNIT (25MCG) TABLET PO SCH (08:20)
[2019-12-20] MEDS: Folic Acid 1 MG TABLET PO SCH (08:20)
[2019-12-20] MEDS: gemfibroziL 600 MG TABLET PO SCH ×2 (08:20→20:09)
[2019-12-20] MEDS: Sennosides/Docusate Sodium TABLET PO SCH ×2 (08:20→20:09)
[2019-12-20] MEDS: tiZANidine 4 MG TABLET PO PRN ×2 (08:27→14:34)
[2019-12-20] MEDS: *HR* OxyCODONE/APAP 5/325 TABLET PO PRN (10:31)
[2019-12-20] MEDS: tiZANidine 4 MG TABLET PO SCH (20:10)
[2019-12-21] MEDS: *HR* Enoxaparin 30 MG/0.3 ML SYRINGE SQ SCH (06:11)
[2019-12-21] MEDS: tiZANidine 4 MG TABLET PO PRN (07:21)
[2019-12-21] MEDS: polyethylene glycoL 3350 17 GM POWD.PACK PO SCH (08:40)
[2019-12-21] MEDS: gemfibroziL 600 MG TABLET PO SCH ×2 (08:41→20:04)
[2019-12-21] MEDS: *HR* Glimepiride 4 MG TABLET PO SCH (08:41)
[2019-12-21] MEDS: Cyanocobalamin (B-12) 1,000 MCG TABLET PO SCH (08:41)
[2019-12-21] MEDS: Cholecalciferol (D-3) 1,000 UNIT (25MCG) TABLET PO SCH (08:41)
[2019-12-21] MEDS: amLODIPine 5 MG TABLET PO SCH (08:41)
[2019-12-21] MEDS: carvediloL 6.25 MG TABLET PO SCH ×2 (08:41→15:56)
[2019-12-21] MEDS: Primidone 50 MG TABLET PO SCH ×2 (08:41→20:03)
[2019-12-21] MEDS: Multivit/Ca/Min/Fe/FA 1 TAB TABLET PO SCH (08:41)
[2019-12-21] MEDS: Insulin LISPRO 300 UNITS/3 ML VIAL SQ SCH ×4 (08:41→20:06)
[2019-12-21] MEDS: Aspirin Enteric Coated 81 MG Tablet PO SCH (08:41)
[2019-12-21] MEDS: Sennosides/Docusate Sodium TABLET PO SCH ×2 (08:41→20:05)
[2019-12-21] MEDS: Folic Acid 1 MG TABLET PO SCH (08:41)
[2019-12-21] MEDS: *HR* OxyCODONE/APAP 5/325 TABLET PO PRN ×3 (11:04→20:03)
[2019-12-21] MEDS: tiZANidine 4 MG TABLET PO SCH (20:04)
[2019-12-22] MEDS: *HR* Enoxaparin 30 MG/0.3 ML SYRINGE SQ SCH (04:37)
[2019-12-22] MEDS: *HR* OxyCODONE/APAP 5/325 TABLET PO PRN (07:34)
[2019-12-22] MEDS: Insulin LISPRO 300 UNITS/3 ML VIAL SQ SCH (07:36)
[2019-12-22 08:02] VITALS: BP 155/81
[2019-12-22] MEDS: carvediloL 6.25 MG TABLET PO SCH (09:17)
[2019-12-22] MEDS: amLODIPine 5 MG TABLET PO SCH (09:17)
[2019-12-22] MEDS: Multivit/Ca/Min/Fe/FA 1 TAB TABLET PO SCH (09:17)
[2019-12-22] MEDS: Cyanocobalamin (B-12) 1,000 MCG TABLET PO SCH (09:18)
[2019-12-22] MEDS: Aspirin Enteric Coated 81 MG Tablet PO SCH (09:18)
[2019-12-22] MEDS: *HR* Glimepiride 4 MG TABLET PO SCH (09:18)
[2019-12-22] MEDS: gemfibroziL 600 MG TABLET PO SCH (09:18)
[2019-12-22] MEDS: Sennosides/Docusate Sodium TABLET PO SCH (09:18)
[2019-12-22] MEDS: Cholecalciferol (D-3) 1,000 UNIT (25MCG) TABLET PO SCH (09:18)
[2019-12-22] MEDS: Primidone 50 MG TABLET PO SCH (09:18)
[2019-12-22] MEDS: polyethylene glycoL 3350 17 GM POWD.PACK PO SCH (09:20)
[2019-12-22] MEDS: Folic Acid 1 MG TABLET PO SCH (09:20)
[2019-12-22] MEDS: tiZANidine 4 MG TABLET PO PRN (11:50)
== END 2019-12-22 12:09 | disposition home health service (06) | DRG 560 ==
LOC: INPGRE 21:58 → UNDODISIN 12-06 11:51
PROVIDERS: ADMIT Family Medicine; ATTEND Family Medicine

== ENCOUNTER 2020-03-14 17:32 | Inpatient (IN) ==
[2020-03-15] MEDS ORDERED: tiZANidine 4 MG TABLET PO PRN (18:45)
[2020-03-15] MEDS ORDERED: Benzonatate 100 MG CAPSULE PO PRN (18:45)
[2020-03-15] MEDS ORDERED: *HR* Dextrose 50 % in Water (Vial) 50 ML VIAL IVP PRN (19:04)
[2020-03-15] MEDS ORDERED: D5% in Water 1,000 ML IVC PRN (19:04)
[2020-03-15] MEDS ORDERED: Dextrose Gel 15 GM/37.5 ML TUBE PO PRN ×2 (19:04)
[2020-03-15] MEDS: Apixaban 5 MG TABLET PO SCH (21:19)
[2020-03-15] MEDS: gemfibroziL 600 MG TABLET PO SCH (21:20)
[2020-03-15] MEDS: Insulin LISPRO 300 UNITS/3 ML VIAL SQ SCH (21:49)
[2020-03-16 05:46] LABS: Basophils # 0.1 K/mcL (0.0-0.2); Basophils % 0.4 %; Eosinophils % 0.9 %; Hematocrit 34.2 % (35.3-44.9); Hemoglobin 10.9 g/dL (11.5-15.4); Immature Granulocytes % 1.5 % (0-4); Lymphocytes # 1.9 K/mcL (0.6-4.6); Lymphocytes % 11.9 %; Mean Corpuscular HGB Conc 31.9 g/dL (31.6-35.5); Mean Corpuscular Hemoglobin 31.3 pg (28.0-33.3); Mean Corpuscular Volume 98.3 fL (83.0-100.0); Mean Platelet Volume 10.5 fL (9.4-12.4); Monocytes # 1.7 K/mcL (0.0-1.3); Monocytes % 10.5 %; Neutrophils # 12.1 K/mcL (1.6-8.9); Nucleated Red Blood Cells 0.1 /100 WBC (0); Platelet Count 694 K/mcL (140-400); Red Blood Count 3.48 M/mcL (3.82-4.97); Red Cell Distribution Width 14.7 % (11.5-14.5); Segmented Neutrophils % 74.8 %; White Blood Count 16.2 K/mcL (4.3-11.1)
[2020-03-16 05:48] LABS: Eosinophils # 0.2 K/mcL (0.0-0.6)
[2020-03-16 05:58] LABS: Albumin 2.8 g/dL (3.5-5.7); Albumin/Globulin Ratio 0.8 (1.1-2.2); Bilirubin,Total 0.2 mg/dL (0.3-1.0); Calcium 8.9 mg/dL (8.6-10.3); Globulin 3.4 g/dL (2.4-3.5); Magnesium 1.6 mg/dL (1.6-2.6); Potassium 4.5 mEq/L (3.5-5.1); Total Protein 6.2 g/dL (6.4-8.9)
[2020-03-16] MEDS: Cholecalciferol (D-3) 1,000 UNIT (25MCG) TABLET PO SCH (09:03)
[2020-03-16] MEDS: Aspirin Enteric Coated 81 MG Tablet PO SCH (09:03)
[2020-03-16] MEDS: Apixaban 5 MG TABLET PO SCH ×2 (09:04→20:32)
[2020-03-16] MEDS: Primidone 50 MG TABLET PO SCH (09:04)
[2020-03-16] MEDS: *HR* Glimepiride 4 MG TABLET PO SCH (09:04)
[2020-03-16] MEDS: Folic Acid 1 MG TABLET PO SCH (09:04)
[2020-03-16] MEDS: gemfibroziL 600 MG TABLET PO SCH ×2 (09:04→20:32)
[2020-03-16] MEDS: Multivit/Ca/Min/Fe/FA 1 TAB TABLET PO SCH (09:04)
[2020-03-16] MEDS: Insulin LISPRO 300 UNITS/3 ML VIAL SQ SCH ×4 (09:05→20:33)
[2020-03-16] MEDS: Cyanocobalamin (B-12) 1,000 MCG TABLET PO SCH (11:22)
[2020-03-16] MEDS: Acetaminophen 325 MG TABLET PO PRN (17:12)
[2020-03-17] MEDS: *HR* Glimepiride 4 MG TABLET PO SCH (08:38)
[2020-03-17] MEDS: Insulin LISPRO 300 UNITS/3 ML VIAL SQ SCH ×4 (08:38→21:10)
[2020-03-17 08:45] LABS: Basophils # 0.1 K/mcL (0.0-0.2); Basophils % 0.4 %; Eosinophils % 0.2 %; Hematocrit 32.9 % (35.3-44.9); Hemoglobin 10.5 g/dL (11.5-15.4); Lymphocytes # 1.1 K/mcL (0.6-4.6); Lymphocytes % 6.7 %; Mean Corpuscular HGB Conc 31.9 g/dL (31.6-35.5); Mean Corpuscular Hemoglobin 31.5 pg (28.0-33.3); Mean Corpuscular Volume 98.8 fL (83.0-100.0); Mean Platelet Volume 10.6 fL (9.4-12.4); Monocytes # 1.3 K/mcL (0.0-1.3); Monocytes % 8.2 %; Neutrophils # 13.3 K/mcL (1.6-8.9); Nucleated Red Blood Cells 0.1 /100 WBC (0); Platelet Count 742 K/mcL (140-400); Red Blood Count 3.33 M/mcL (3.82-4.97); Red Cell Distribution Width 14.8 % (11.5-14.5); Segmented Neutrophils % 82.5 %; White Blood Count 16.1 K/mcL (4.3-11.1)
[2020-03-17] MEDS: Aspirin Enteric Coated 81 MG Tablet PO SCH (08:45)
[2020-03-17] MEDS: Primidone 50 MG TABLET PO SCH (08:46)
[2020-03-17] MEDS: gemfibroziL 600 MG TABLET PO SCH ×2 (08:46→19:57)
[2020-03-17] MEDS: Cyanocobalamin (B-12) 1,000 MCG TABLET PO SCH (08:46)
[2020-03-17] MEDS: Folic Acid 1 MG TABLET PO SCH (08:46)
[2020-03-17] MEDS: Multivit/Ca/Min/Fe/FA 1 TAB TABLET PO SCH (08:46)
[2020-03-17] MEDS: Acetaminophen 325 MG TABLET PO PRN ×2 (08:46→19:56)
[2020-03-17] MEDS: Apixaban 5 MG TABLET PO SCH ×2 (08:46→19:56)
[2020-03-17] MEDS: Cholecalciferol (D-3) 1,000 UNIT (25MCG) TABLET PO SCH (08:47)
[2020-03-17 09:06] LABS: Calcium 8.5 mg/dL (8.6-10.3); Potassium 4.6 mEq/L (3.5-5.1)
[2020-03-17 19:42] LABS: Bilirubin,Urine Negative (Negative); Blood,Urine Small (Negative); Clarity,Urine Clear (Clear); Color,Urine Yellow (Yellow); Glucose,Urine (UA) 100 mg/dL (Normal); Ketones,Urine Negative (Negative); Leukocyte Esterase,Urine Negative (Negative); Nitrite,Urine Negative (Negative); Protein,Urine >=300 mg/dL (Neg-Trace); Specific Gravity,Urine >= 1.030 (1.010-1.025); Urobilinogen,Urine Normal (Normal)
[2020-03-17 19:53] LABS: Bacteria,Urine Few per hpf (None-Few); Hyaline Casts,Urine Moderate per lpf (None Seen); RBC,Urine 0-3 per hpf (0-3); Squamous Epithelial Cell,Urine Few per hpf (None-Few); WBC,Urine 0-3 per hpf (0-3)
[2020-03-17] MEDS: levoFLOXacin 750 MG/150 ML 750 MG/150 ML BAG IVPB SCH (21:27)
[2020-03-18 06:34] LABS: Basophils # 0.1 K/mcL (0.0-0.2); Basophils % 0.7 %; Eosinophils # 0.1 K/mcL (0.0-0.6); Eosinophils % 0.7 %; Hematocrit 33.5 % (35.3-44.9); Hemoglobin 10.7 g/dL (11.5-15.4); Lymphocytes # 1.4 K/mcL (0.6-4.6); Lymphocytes % 9.2 %; Mean Corpuscular HGB Conc 31.9 g/dL (31.6-35.5); Mean Corpuscular Hemoglobin 31.2 pg (28.0-33.3); Mean Corpuscular Volume 97.7 fL (83.0-100.0); Mean Platelet Volume 10.8 fL (9.4-12.4); Monocytes # 1.4 K/mcL (0.0-1.3); Monocytes % 9.3 %; Neutrophils # 11.6 K/mcL (1.6-8.9); Platelet Count 675 K/mcL (140-400); Red Blood Count 3.43 M/mcL (3.82-4.97); Red Cell Distribution Width 14.6 % (11.5-14.5); Segmented Neutrophils % 75.1 %; White Blood Count 15.5 K/mcL (4.3-11.1)
[2020-03-18 06:53] LABS: Calcium 8.5 mg/dL (8.6-10.3); Potassium 5.1 mEq/L (3.5-5.1)
[2020-03-18] MEDS: Insulin LISPRO 300 UNITS/3 ML VIAL SQ SCH ×4 (08:25→19:52)
[2020-03-18] MEDS: Cholecalciferol (D-3) 1,000 UNIT (25MCG) TABLET PO SCH (08:32)
[2020-03-18] MEDS: Multivit/Ca/Min/Fe/FA 1 TAB TABLET PO SCH (08:32)
[2020-03-18] MEDS: Acetaminophen 325 MG TABLET PO PRN ×2 (08:32→20:12)
[2020-03-18] MEDS: Primidone 50 MG TABLET PO SCH (08:33)
[2020-03-18] MEDS: Folic Acid 1 MG TABLET PO SCH (08:33)
[2020-03-18] MEDS: Aspirin Enteric Coated 81 MG Tablet PO SCH (08:33)
[2020-03-18] MEDS: Apixaban 5 MG TABLET PO SCH ×2 (08:33→19:58)
[2020-03-18] MEDS: Cyanocobalamin (B-12) 1,000 MCG TABLET PO SCH (08:33)
[2020-03-18] MEDS: gemfibroziL 600 MG TABLET PO SCH ×2 (08:33→19:58)
[2020-03-18] MEDS: levoFLOXacin 750 MG/150 ML 750 MG/150 ML BAG IVPB SCH (08:33)
[2020-03-18] MEDS ORDERED: levoFLOXacin 750 MG/150 ML 750 MG/150 ML BAG IVPB SCH (18:30)
[2020-03-19] MEDS: Acetaminophen 325 MG TABLET PO PRN ×2 (05:14→18:36)
[2020-03-19] MEDS: Insulin LISPRO 300 UNITS/3 ML VIAL SQ SCH ×4 (09:07→21:13)
[2020-03-19] MEDS: Cholecalciferol (D-3) 1,000 UNIT (25MCG) TABLET PO SCH (09:08)
[2020-03-19] MEDS: Apixaban 5 MG TABLET PO SCH ×2 (09:09→21:12)
[2020-03-19] MEDS: Cyanocobalamin (B-12) 1,000 MCG TABLET PO SCH (09:09)
[2020-03-19] MEDS: Aspirin Enteric Coated 81 MG Tablet PO SCH (09:09)
[2020-03-19] MEDS: Multivit/Ca/Min/Fe/FA 1 TAB TABLET PO SCH (09:09)
[2020-03-19] MEDS: Primidone 50 MG TABLET PO SCH (09:10)
[2020-03-19] MEDS: Folic Acid 1 MG TABLET PO SCH (09:10)
[2020-03-19] MEDS: gemfibroziL 600 MG TABLET PO SCH ×2 (09:10→21:12)
[2020-03-19 11:33] LABS: Basophils # 0.1 K/mcL (0.0-0.2); Basophils % 0.8 %; Eosinophils % 0.1 %; Hematocrit 29.4 % (35.3-44.9); Hemoglobin 9.5 g/dL (11.5-15.4); Immature Granulocytes % 6.9 % (0-4); Lymphocytes # 1.2 K/mcL (0.6-4.6); Lymphocytes % 7.7 %; Mean Corpuscular HGB Conc 32.3 g/dL (31.6-35.5); Mean Corpuscular Hemoglobin 31.7 pg (28.0-33.3); Mean Platelet Volume 10.2 fL (9.4-12.4); Monocytes % 6.6 %; Nucleated Red Blood Cells 0.2 /100 WBC (0); Platelet Count 768 K/mcL (140-400); Red Cell Distribution Width 14.6 % (11.5-14.5); Segmented Neutrophils % 77.9 %; White Blood Count 15.6 K/mcL (4.3-11.1)
[2020-03-19 11:37] LABS: Neutrophils # 12.2 K/mcL (1.6-8.9)
[2020-03-19 11:44] LABS: Calcium 8.5 mg/dL (8.6-10.3); Potassium 4.5 mEq/L (3.5-5.1)
[2020-03-19 11:54] LABS: Platelet Estimate Increased (Normal)
[2020-03-19 11:55] LABS: Howell-Jolly Bodies 1+ (Not Present)
[2020-03-19 12:57] LABS: Albumin 2.4 g/dL (3.5-5.7); Albumin/Globulin Ratio 0.8 (1.1-2.2); Bilirubin,Indirect 0.2 mg/dL (0.0-1.0); Bilirubin,Total 0.2 mg/dL (0.3-1.0); Total Protein 5.4 g/dL (6.4-8.9)
[2020-03-20] MEDS: Insulin LISPRO 300 UNITS/3 ML VIAL SQ SCH ×4 (09:14→20:51)
[2020-03-20] MEDS: Aspirin Enteric Coated 81 MG Tablet PO SCH (09:23)
[2020-03-20] MEDS: Cholecalciferol (D-3) 1,000 UNIT (25MCG) TABLET PO SCH (09:24)
[2020-03-20] MEDS: Folic Acid 1 MG TABLET PO SCH (09:24)
[2020-03-20] MEDS: gemfibroziL 600 MG TABLET PO SCH ×2 (09:24→20:51)
[2020-03-20] MEDS: Cyanocobalamin (B-12) 1,000 MCG TABLET PO SCH (09:24)
[2020-03-20] MEDS: Apixaban 5 MG TABLET PO SCH ×2 (09:24→20:51)
[2020-03-20] MEDS: Primidone 50 MG TABLET PO SCH (09:25)
[2020-03-20] MEDS: Multivit/Ca/Min/Fe/FA 1 TAB TABLET PO SCH (09:25)
[2020-03-20] MEDS: levoFLOXacin 750 MG/150 ML 750 MG/150 ML BAG IVPB SCH (09:25)
[2020-03-20] MEDS: Ipratropium/Albuterol Neb 3 ML IH SCH ×3 (11:23→22:29)
[2020-03-20] MEDS: Acetaminophen 325 MG TABLET PO PRN (21:12)
[2020-03-21] MEDS: Ipratropium/Albuterol Neb 3 ML IH SCH ×3 (04:07→15:05)
[2020-03-21 05:44] LABS: Hematocrit 30.8 % (35.3-44.9); Mean Corpuscular HGB Conc 32.5 g/dL (31.6-35.5); Mean Corpuscular Hemoglobin 31.5 pg (28.0-33.3); Mean Corpuscular Volume 97.2 fL (83.0-100.0); Mean Platelet Volume 10.2 fL (9.4-12.4); Platelet Count 810 K/mcL (140-400); Red Blood Count 3.17 M/mcL (3.82-4.97); Red Cell Distribution Width 14.6 % (11.5-14.5); White Blood Count 23.3 K/mcL (4.3-11.1)
[2020-03-21 05:57] LABS: Calcium 8.8 mg/dL (8.6-10.3); Magnesium 1.5 mg/dL (1.6-2.6); Potassium 5.3 mEq/L (3.5-5.1)
[2020-03-21] MEDS: gemfibroziL 600 MG TABLET PO SCH ×2 (08:17→21:49)
[2020-03-21] MEDS: Insulin LISPRO 300 UNITS/3 ML VIAL SQ SCH ×4 (08:17→21:09)
[2020-03-21] MEDS: Apixaban 5 MG TABLET PO SCH ×2 (08:17→21:49)
[2020-03-21] MEDS: Primidone 50 MG TABLET PO SCH (08:18)
[2020-03-21] MEDS: Cholecalciferol (D-3) 1,000 UNIT (25MCG) TABLET PO SCH (08:18)
[2020-03-21] MEDS: Folic Acid 1 MG TABLET PO SCH (08:18)
[2020-03-21] MEDS: Aspirin Enteric Coated 81 MG Tablet PO SCH (08:18)
[2020-03-21] MEDS: Multivit/Ca/Min/Fe/FA 1 TAB TABLET PO SCH (08:18)
[2020-03-21] MEDS: Cyanocobalamin (B-12) 1,000 MCG TABLET PO SCH (08:18)
[2020-03-21] MEDS ORDERED: Nitrofurantoin (BID) 100 MG CAPSULE PO SCH ×2 (09:29→17:00)
[2020-03-21] MEDS: 0.9 % Sodium Chloride 1,000 ML IVC SCH (11:00)
[2020-03-21] MEDS ORDERED: DAPTOmycin 500 MG in 0.9 % Sodium Chloride 100 ML IVPB SCH (17:00)
[2020-03-21] MEDS: Acetaminophen 325 MG TABLET PO PRN (19:12)
[2020-03-21 20:10] LABS: C-Reactive Protein 213 mg/L (Less than 10)
[2020-03-21 20:13] LABS: Ferritin > 1500 ng/mL (10-120)
[2020-03-21] MEDS: Amoxicillin 500 MG CAPSULE PO SCH (21:49)
[2020-03-22] MEDS: 0.9 % Sodium Chloride 1,000 ML IVC SCH (03:14)
[2020-03-22 05:26] LABS: Hematocrit 28.6 % (35.3-44.9); Hemoglobin 9.4 g/dL (11.5-15.4); Mean Corpuscular HGB Conc 32.9 g/dL (31.6-35.5); Mean Corpuscular Hemoglobin 31.9 pg (28.0-33.3); Mean Corpuscular Volume 96.9 fL (83.0-100.0); Platelet Count 769 K/mcL (140-400); Red Blood Count 2.95 M/mcL (3.82-4.97); Red Cell Distribution Width 14.5 % (11.5-14.5); White Blood Count 27.7 K/mcL (4.3-11.1)
[2020-03-22 05:42] LABS: Albumin 2.4 g/dL (3.5-5.7); Albumin/Globulin Ratio 0.8 (1.1-2.2); Bilirubin,Total 0.2 mg/dL (0.3-1.0); Calcium 8.3 mg/dL (8.6-10.3); Globulin 2.9 g/dL (2.4-3.5); Magnesium 1.8 mg/dL (1.6-2.6); Potassium 4.4 mEq/L (3.5-5.1); Total Protein 5.3 g/dL (6.4-8.9)
[2020-03-22 07:19] VITALS: BP 146/70
[2020-03-22] MEDS: Cholecalciferol (D-3) 1,000 UNIT (25MCG) TABLET PO SCH (07:37)
[2020-03-22] MEDS: Aspirin Enteric Coated 81 MG Tablet PO SCH (07:37)
[2020-03-22] MEDS: Primidone 50 MG TABLET PO SCH (07:38)
[2020-03-22] MEDS: Amoxicillin 500 MG CAPSULE PO SCH (07:38)
[2020-03-22] MEDS: Apixaban 5 MG TABLET PO SCH (07:38)
[2020-03-22] MEDS: Folic Acid 1 MG TABLET PO SCH (07:38)
[2020-03-22] MEDS: Multivit/Ca/Min/Fe/FA 1 TAB TABLET PO SCH (07:38)
[2020-03-22] MEDS: gemfibroziL 600 MG TABLET PO SCH (07:38)
[2020-03-22] MEDS: levoFLOXacin 750 MG/150 ML 750 MG/150 ML BAG IVPB SCH (07:39)
[2020-03-22] MEDS: Cyanocobalamin (B-12) 1,000 MCG TABLET PO SCH (07:39)
[2020-03-22] MEDS: Insulin LISPRO 300 UNITS/3 ML VIAL SQ SCH ×2 (07:40→12:26)
[2020-03-22 11:13] LABS: ABG Base Excess -8 mEq/L (-2 to 3); ABG HCO3 16 mEq/L (21-27); ABG Oxygen Saturation 100 % (95-98); ABG PCO2 30 mmHg (35-45); ABG PH 7.34 pH Units (7.32-7.45); ABG PO2 484 mmHg (85-104); ABG TCO2 17 mEq/L (20-26)
[2020-03-22 20:18] LABS: C-Reactive Protein 216 mg/L (Less than 10)
[2020-03-22 20:32] LABS: Ferritin > 1500 ng/mL (10-120)
== END 2020-03-22 14:20 | disposition short-term general hospital (02) | DRG 177 ==
LOC: INPGRE 03-15 18:38
PROVIDERS: ADMIT Family Medicine; ATTEND Family Medicine

== ENCOUNTER 2020-03-24 10:00 | Inpatient (IN) ==
[2020-03-24] MEDS ORDERED: Benzonatate 100 MG CAPSULE PO PRN (13:54)
[2020-03-24] MEDS: gemfibroziL 600 MG TABLET PO SCH (19:53)
[2020-03-24] MEDS: Apixaban 5 MG TABLET PO SCH (19:53)
[2020-03-24] MEDS: Insulin LISPRO 300 UNITS/3 ML VIAL SQ SCH (19:54)
[2020-03-24] MEDS: tiZANidine 4 MG TABLET PO PRN (19:56)
[2020-03-24] MEDS ORDERED: PROPRANOLOL HCL 160 MG PO SCH (21:00)
[2020-03-25] MEDS: tiZANidine 4 MG TABLET PO PRN (05:49)
[2020-03-25 06:08] LABS: Basophils # 0.2 K/mcL (0.0-0.2); Basophils % 0.7 %; Eosinophils # 0.3 K/mcL (0.0-0.6); Eosinophils % 1.3 %; Hematocrit 25.7 % (35.3-44.9); Hemoglobin 8.3 g/dL (11.5-15.4); Immature Granulocytes % 10.6 % (0-4); Lymphocytes # 2.6 K/mcL (0.6-4.6); Lymphocytes % 10.3 %; Mean Corpuscular HGB Conc 32.3 g/dL (31.6-35.5); Mean Corpuscular Hemoglobin 31.2 pg (28.0-33.3); Mean Corpuscular Volume 96.6 fL (83.0-100.0); Mean Platelet Volume 9.9 fL (9.4-12.4); Monocytes % 5.7 %; Neutrophils # 18.1 K/mcL (1.6-8.9); Nucleated Red Blood Cells 0.3 /100 WBC (0); Platelet Count 962 K/mcL (140-400); Red Blood Count 2.66 M/mcL (3.82-4.97); Red Cell Distribution Width 14.8 % (11.5-14.5); Segmented Neutrophils % 71.4 %; White Blood Count 25.4 K/mcL (4.3-11.1)
[2020-03-25 06:39] LABS: Monocytes # 1.5 K/mcL (0.0-1.3)
[2020-03-25 06:57] LABS: Calcium 8.5 mg/dL (8.6-10.3)
[2020-03-25] MEDS ORDERED: CefTRIAXone 2,000 MG VIAL IVP SCH (09:00)
[2020-03-25] MEDS: Insulin LISPRO 300 UNITS/3 ML VIAL SQ SCH ×4 (09:30→20:25)
[2020-03-25] MEDS: Folic Acid 1 MG TABLET PO SCH (09:32)
[2020-03-25] MEDS: Aspirin Enteric Coated 81 MG Tablet PO SCH (09:32)
[2020-03-25] MEDS: gemfibroziL 600 MG TABLET PO SCH ×2 (09:32→20:26)
[2020-03-25] MEDS: Multivit/Ca/Min/Fe/FA 1 TAB TABLET PO SCH (09:33)
[2020-03-25] MEDS: *HR* Glimepiride 4 MG TABLET PO SCH (09:33)
[2020-03-25] MEDS: Cyanocobalamin (B-12) 1,000 MCG TABLET PO SCH (09:33)
[2020-03-25] MEDS: Cholecalciferol (D-3) 1,000 UNIT (25MCG) TABLET PO SCH (09:33)
[2020-03-25] MEDS: Apixaban 5 MG TABLET PO SCH ×2 (09:34→20:26)
[2020-03-25] MEDS: cefTRIAXone 2,000 MG in Water for inj. (sterile) 20 ML IVP SCH (09:36)
[2020-03-25] MEDS: Dexamethasone 4 MG/ML VIAL IVP SCH (09:37)
[2020-03-25] MEDS: Acetaminophen 325 MG TABLET PO PRN (20:26)
[2020-03-26] MEDS: Insulin LISPRO 300 UNITS/3 ML VIAL SQ SCH ×4 (07:58→21:20)
[2020-03-26] MEDS: gemfibroziL 600 MG TABLET PO SCH ×2 (09:41→21:22)
[2020-03-26] MEDS: Folic Acid 1 MG TABLET PO SCH (09:41)
[2020-03-26] MEDS: Cyanocobalamin (B-12) 1,000 MCG TABLET PO SCH (09:41)
[2020-03-26] MEDS: Cholecalciferol (D-3) 1,000 UNIT (25MCG) TABLET PO SCH (09:41)
[2020-03-26] MEDS: Aspirin Enteric Coated 81 MG Tablet PO SCH (09:41)
[2020-03-26] MEDS: Apixaban 5 MG TABLET PO SCH ×3 (09:42→21:22)
[2020-03-26] MEDS: *HR* Glimepiride 4 MG TABLET PO SCH (09:42)
[2020-03-26] MEDS: Multivit/Ca/Min/Fe/FA 1 TAB TABLET PO SCH (09:42)
[2020-03-26] MEDS: cefTRIAXone 2,000 MG in Water for inj. (sterile) 20 ML IVP SCH ×2 (09:47→11:07)
[2020-03-26] MEDS: Dexamethasone 4 MG/ML VIAL IVP SCH ×2 (09:47→11:06)
[2020-03-26 10:52] LABS: Basophils % 0.1 %; Eosinophils # 0.5 K/mcL (0.0-0.6); Eosinophils % 1.6 %; Hematocrit 28.7 % (35.3-44.9); Hemoglobin 9.3 g/dL (11.5-15.4); Immature Granulocytes % 12.1 % (0-4); Lymphocytes # 2.4 K/mcL (0.6-4.6); Lymphocytes % 7.8 %; Mean Corpuscular HGB Conc 32.4 g/dL (31.6-35.5); Mean Corpuscular Hemoglobin 31.4 pg (28.0-33.3); Mean Platelet Volume 9.8 fL (9.4-12.4); Monocytes # 1.4 K/mcL (0.0-1.3); Monocytes % 4.5 %; Neutrophils # 22.9 K/mcL (1.6-8.9); Nucleated Red Blood Cells 0.2 /100 WBC (0); Platelet Count 857 K/mcL (140-400); Red Blood Count 2.96 M/mcL (3.82-4.97); Red Cell Distribution Width 14.9 % (11.5-14.5); Segmented Neutrophils % 73.9 %
[2020-03-26 11:10] LABS: Calcium 8.7 mg/dL (8.6-10.3); Potassium 4.3 mEq/L (3.5-5.1)
[2020-03-26 11:38] LABS: Platelet Estimate Marked Increase (Normal)
[2020-03-26 11:39] LABS: Howell-Jolly Bodies 1+ (Not Present)
[2020-03-26] MEDS: Acetaminophen 325 MG TABLET PO PRN (21:21)
[2020-03-27] MEDS: Insulin LISPRO 300 UNITS/3 ML VIAL SQ SCH ×4 (09:03→20:23)
[2020-03-27] MEDS: Aspirin Enteric Coated 81 MG Tablet PO SCH (10:05)
[2020-03-27] MEDS: Apixaban 5 MG TABLET PO SCH ×2 (10:05→20:19)
[2020-03-27] MEDS: Cholecalciferol (D-3) 1,000 UNIT (25MCG) TABLET PO SCH (10:05)
[2020-03-27] MEDS: gemfibroziL 600 MG TABLET PO SCH ×2 (10:05→20:20)
[2020-03-27] MEDS: *HR* Glimepiride 4 MG TABLET PO SCH (10:06)
[2020-03-27] MEDS: Cyanocobalamin (B-12) 1,000 MCG TABLET PO SCH (10:06)
[2020-03-27] MEDS: Multivit/Ca/Min/Fe/FA 1 TAB TABLET PO SCH (10:06)
[2020-03-27] MEDS: Folic Acid 1 MG TABLET PO SCH (10:06)
[2020-03-27] MEDS: Dexamethasone 4 MG/ML VIAL IVP SCH (12:04)
[2020-03-27] MEDS: cefTRIAXone 2,000 MG in Water for inj. (sterile) 20 ML IVP SCH (12:05)
[2020-03-27 12:59] LABS: Basophils % 0.1 %; Eosinophils % 1.3 %; Hematocrit 26.4 % (35.3-44.9); Hemoglobin 8.7 g/dL (11.5-15.4); Immature Granulocytes % 13.3 % (0-4); Lymphocytes # 1.9 K/mcL (0.6-4.6); Mean Corpuscular Volume 97.1 fL (83.0-100.0); Mean Platelet Volume 9.4 fL (9.4-12.4); Monocytes # 1.1 K/mcL (0.0-1.3); Monocytes % 4.2 %; Neutrophils # 20.1 K/mcL (1.6-8.9); Nucleated Red Blood Cells 0.3 /100 WBC (0); Platelet Count 965 K/mcL (140-400); Red Blood Count 2.72 M/mcL (3.82-4.97); Red Cell Distribution Width 15.2 % (11.5-14.5); Segmented Neutrophils % 74.1 %; White Blood Count 27.1 K/mcL (4.3-11.1)
[2020-03-27 13:06] LABS: Eosinophils # 0.4 K/mcL (0.0-0.6)
[2020-03-27 13:12] LABS: Calcium 8.5 mg/dL (8.6-10.3); Potassium 4.4 mEq/L (3.5-5.1)
[2020-03-27] MEDS: tiZANidine 4 MG TABLET PO PRN (20:20)
[2020-03-27] MEDS: Acetaminophen 325 MG TABLET PO PRN (20:20)
[2020-03-28 05:09] LABS: Hematocrit 25.7 % (35.3-44.9); Hemoglobin 8.4 g/dL (11.5-15.4); Mean Corpuscular HGB Conc 32.7 g/dL (31.6-35.5); Mean Corpuscular Hemoglobin 31.8 pg (28.0-33.3); Mean Corpuscular Volume 97.3 fL (83.0-100.0); Mean Platelet Volume 9.4 fL (9.4-12.4); Nucleated Red Blood Cells 0.4 /100 WBC (0); Platelet Count 932 K/mcL (140-400); Red Blood Count 2.64 M/mcL (3.82-4.97); Red Cell Distribution Width 15.3 % (11.5-14.5)
[2020-03-28 05:12] LABS: White Blood Count 30.8 K/mcL (4.3-11.1)
[2020-03-28 05:17] LABS: Lymphocytes # 3.1 K/mcL (0.6-4.6); Neutrophils # 25.3 K/mcL (1.6-8.9)
[2020-03-28 05:18] LABS: Basophils # 0.3 K/mcL (0.0-0.2); Eosinophils # 0.3 K/mcL (0.0-0.6); Monocytes # 1.9 K/mcL (0.0-1.3); Platelet Estimate Increased (Normal)
[2020-03-28 05:21] LABS: Calcium 8.6 mg/dL (8.6-10.3); Potassium 4.5 mEq/L (3.5-5.1)
[2020-03-28] MEDS: Apixaban 5 MG TABLET PO SCH ×2 (08:36→20:56)
[2020-03-28] MEDS: cefTRIAXone 2,000 MG in Water for inj. (sterile) 20 ML IVP SCH (08:36)
[2020-03-28] MEDS: Folic Acid 1 MG TABLET PO SCH (08:37)
[2020-03-28] MEDS: gemfibroziL 600 MG TABLET PO SCH ×2 (08:37→20:56)
[2020-03-28] MEDS: Aspirin Enteric Coated 81 MG Tablet PO SCH (08:37)
[2020-03-28] MEDS: Dexamethasone 4 MG/ML VIAL IVP SCH (08:37)
[2020-03-28] MEDS: *HR* Glimepiride 4 MG TABLET PO SCH (08:37)
[2020-03-28] MEDS: Cholecalciferol (D-3) 1,000 UNIT (25MCG) TABLET PO SCH (08:37)
[2020-03-28] MEDS: Acetaminophen 325 MG TABLET PO PRN ×2 (08:37→20:56)
[2020-03-28] MEDS: Multivit/Ca/Min/Fe/FA 1 TAB TABLET PO SCH (08:37)
[2020-03-28] MEDS: Insulin LISPRO 300 UNITS/3 ML VIAL SQ SCH ×4 (09:03→20:54)
[2020-03-28] MEDS: Cyanocobalamin (B-12) 1,000 MCG TABLET PO SCH (09:11)
[2020-03-28] MEDS: tiZANidine 4 MG TABLET PO PRN (20:56)
[2020-03-29] MEDS: Insulin LISPRO 300 UNITS/3 ML VIAL SQ SCH ×3 (08:03→16:28)
[2020-03-29] MEDS: *HR* Glimepiride 4 MG TABLET PO SCH (08:57)
[2020-03-29] MEDS: Cholecalciferol (D-3) 1,000 UNIT (25MCG) TABLET PO SCH (08:57)
[2020-03-29] MEDS: gemfibroziL 600 MG TABLET PO SCH ×2 (08:57→21:10)
[2020-03-29] MEDS: Aspirin Enteric Coated 81 MG Tablet PO SCH (08:57)
[2020-03-29] MEDS: Cyanocobalamin (B-12) 1,000 MCG TABLET PO SCH (08:57)
[2020-03-29] MEDS: Multivit/Ca/Min/Fe/FA 1 TAB TABLET PO SCH (08:58)
[2020-03-29] MEDS: Apixaban 5 MG TABLET PO SCH ×2 (08:58→22:10)
[2020-03-29] MEDS: Folic Acid 1 MG TABLET PO SCH (08:58)
[2020-03-29] MEDS: Dexamethasone 4 MG/ML VIAL IVP SCH (08:58)
[2020-03-29] MEDS: Insulin LISPRO 300 UNITS/3 ML VIAL SUBQ SCH ×2 (16:40→21:11)
[2020-03-29] MEDS: Insulin DETEMIR 100 UNIT/ML X5UNITS SUBQ SCH (21:10)
[2020-03-30] MEDS: Insulin LISPRO 300 UNITS/3 ML VIAL SUBQ SCH ×4 (10:19→21:07)
[2020-03-30] MEDS: *HR* Glimepiride 4 MG TABLET PO SCH (10:20)
[2020-03-30] MEDS: Cholecalciferol (D-3) 1,000 UNIT (25MCG) TABLET PO SCH (10:20)
[2020-03-30] MEDS: Aspirin Enteric Coated 81 MG Tablet PO SCH (10:20)
[2020-03-30] MEDS: Folic Acid 1 MG TABLET PO SCH (10:20)
[2020-03-30] MEDS: gemfibroziL 600 MG TABLET PO SCH ×2 (10:20→21:06)
[2020-03-30] MEDS: Cyanocobalamin (B-12) 1,000 MCG TABLET PO SCH (10:20)
[2020-03-30] MEDS: Multivit/Ca/Min/Fe/FA 1 TAB TABLET PO SCH (10:20)
[2020-03-30] MEDS: Insulin DETEMIR 100 UNIT/ML X5UNITS SUBQ SCH ×2 (10:27→21:08)
[2020-03-30] MEDS: Apixaban 5 MG TABLET PO SCH ×2 (10:46→21:05)
[2020-03-30] MEDS: Dexamethasone 4 MG/ML VIAL IVP SCH (10:49)
[2020-03-31 06:10] LABS: Hematocrit 26.5 % (35.3-44.9); Hemoglobin 8.5 g/dL (11.5-15.4); Mean Corpuscular HGB Conc 32.1 g/dL (31.6-35.5); Mean Corpuscular Hemoglobin 31.5 pg (28.0-33.3); Mean Corpuscular Volume 98.1 fL (83.0-100.0); Mean Platelet Volume 9.4 fL (9.4-12.4); Platelet Count 913 K/mcL (140-400); Red Cell Distribution Width 15.5 % (11.5-14.5); White Blood Count 21.8 K/mcL (4.3-11.1)
[2020-03-31 06:23] LABS: Albumin 2.5 g/dL (3.5-5.7); Albumin/Globulin Ratio 0.7 (1.1-2.2); Bilirubin,Total 0.2 mg/dL (0.3-1.0); Calcium 8.9 mg/dL (8.6-10.3); Globulin 3.5 g/dL (2.4-3.5); Magnesium 1.5 mg/dL (1.6-2.6); Potassium 4.6 mEq/L (3.5-5.1)
[2020-03-31] MEDS: Cholecalciferol (D-3) 1,000 UNIT (25MCG) TABLET PO SCH (08:52)
[2020-03-31] MEDS: Multivit/Ca/Min/Fe/FA 1 TAB TABLET PO SCH (08:52)
[2020-03-31] MEDS: Insulin LISPRO 300 UNITS/3 ML VIAL SUBQ SCH ×4 (08:52→20:27)
[2020-03-31] MEDS: Cyanocobalamin (B-12) 1,000 MCG TABLET PO SCH (08:53)
[2020-03-31] MEDS: gemfibroziL 600 MG TABLET PO SCH ×2 (08:53→20:22)
[2020-03-31] MEDS: *HR* Glimepiride 4 MG TABLET PO SCH (08:53)
[2020-03-31] MEDS: Folic Acid 1 MG TABLET PO SCH (08:53)
[2020-03-31] MEDS: Aspirin Enteric Coated 81 MG Tablet PO SCH (08:53)
[2020-03-31] MEDS: Apixaban 5 MG TABLET PO SCH ×2 (08:53→20:22)
[2020-03-31] MEDS: Insulin DETEMIR 100 UNIT/ML X5UNITS SUBQ SCH ×2 (09:31→20:26)
[2020-03-31] MEDS: Acetaminophen 325 MG TABLET PO PRN (20:22)
[2020-03-31] MEDS: tiZANidine 4 MG TABLET PO PRN (20:22)
[2020-04-01] MEDS: Insulin LISPRO 300 UNITS/3 ML VIAL SUBQ SCH ×4 (07:54→20:59)
[2020-04-01] MEDS: Insulin DETEMIR 100 UNIT/ML X5UNITS SUBQ SCH ×2 (09:00→20:59)
[2020-04-01] MEDS: Cholecalciferol (D-3) 1,000 UNIT (25MCG) TABLET PO SCH (09:47)
[2020-04-01] MEDS: Aspirin Enteric Coated 81 MG Tablet PO SCH (09:47)
[2020-04-01] MEDS: gemfibroziL 600 MG TABLET PO SCH ×2 (09:47→21:01)
[2020-04-01] MEDS: Cyanocobalamin (B-12) 1,000 MCG TABLET PO SCH (09:48)
[2020-04-01] MEDS: Apixaban 5 MG TABLET PO SCH ×2 (09:48→21:02)
[2020-04-01] MEDS: Folic Acid 1 MG TABLET PO SCH (09:48)
[2020-04-01] MEDS: *HR* Glimepiride 4 MG TABLET PO SCH (09:48)
[2020-04-01] MEDS: Multivit/Ca/Min/Fe/FA 1 TAB TABLET PO SCH (09:48)
[2020-04-01] MEDS: Acetaminophen 325 MG TABLET PO PRN (21:02)
[2020-04-01] MEDS: tiZANidine 4 MG TABLET PO PRN (21:02)
[2020-04-02] MEDS: Insulin LISPRO 300 UNITS/3 ML VIAL SUBQ SCH ×4 (07:45→21:04)
[2020-04-02] MEDS: Cholecalciferol (D-3) 1,000 UNIT (25MCG) TABLET PO SCH (09:19)
[2020-04-02] MEDS: Aspirin Enteric Coated 81 MG Tablet PO SCH (09:20)
[2020-04-02] MEDS: gemfibroziL 600 MG TABLET PO SCH ×2 (09:20→21:01)
[2020-04-02] MEDS: Folic Acid 1 MG TABLET PO SCH (09:20)
[2020-04-02] MEDS: Multivit/Ca/Min/Fe/FA 1 TAB TABLET PO SCH (09:20)
[2020-04-02] MEDS: *HR* Glimepiride 4 MG TABLET PO SCH (09:21)
[2020-04-02] MEDS: Cyanocobalamin (B-12) 1,000 MCG TABLET PO SCH (09:21)
[2020-04-02] MEDS: Apixaban 5 MG TABLET PO SCH ×2 (09:21→21:03)
[2020-04-02] MEDS: Insulin DETEMIR 100 UNIT/ML X5UNITS SUBQ SCH ×2 (09:22→21:04)
[2020-04-02] MEDS: tiZANidine 4 MG TABLET PO PRN (21:02)
[2020-04-02] MEDS: Acetaminophen 325 MG TABLET PO PRN (21:03)
[2020-04-03] MEDS: Insulin LISPRO 300 UNITS/3 ML VIAL SUBQ SCH ×4 (07:41→20:17)
[2020-04-03] MEDS: Cyanocobalamin (B-12) 1,000 MCG TABLET PO SCH (08:06)
[2020-04-03] MEDS: Aspirin Enteric Coated 81 MG Tablet PO SCH (08:06)
[2020-04-03] MEDS: Cholecalciferol (D-3) 1,000 UNIT (25MCG) TABLET PO SCH (08:06)
[2020-04-03] MEDS: gemfibroziL 600 MG TABLET PO SCH ×2 (08:06→20:20)
[2020-04-03] MEDS: Insulin DETEMIR 100 UNIT/ML X5UNITS SUBQ SCH (08:07)
[2020-04-03] MEDS: Folic Acid 1 MG TABLET PO SCH (08:07)
[2020-04-03] MEDS: *HR* Glimepiride 4 MG TABLET PO SCH (08:07)
[2020-04-03] MEDS: Multivit/Ca/Min/Fe/FA 1 TAB TABLET PO SCH (08:07)
[2020-04-03] MEDS: Apixaban 5 MG TABLET PO SCH ×2 (08:07→20:22)
[2020-04-03] MEDS: Acetaminophen 325 MG TABLET PO PRN (17:29)
[2020-04-03] MEDS: tiZANidine 4 MG TABLET PO PRN (20:21)
[2020-04-03] MEDS ORDERED: GI Cocktail 40 ML EACH PO ONE (23:15)
[2020-04-04 06:25] LABS: Hemoglobin 6.9 g/dL (11.5-15.4); Mean Corpuscular Hemoglobin 30.5 pg (28.0-33.3); Mean Corpuscular Volume 101.8 fL (83.0-100.0); Mean Platelet Volume 10.1 fL (9.4-12.4); Platelet Count 675 K/mcL (140-400); Red Blood Count 2.26 M/mcL (3.82-4.97); Red Cell Distribution Width 15.9 % (11.5-14.5); White Blood Count 13.8 K/mcL (4.3-11.1)
[2020-04-04 06:47] LABS: Albumin 2.2 g/dL (3.5-5.7); Albumin/Globulin Ratio 0.7 (1.1-2.2); Bilirubin,Total 0.2 mg/dL (0.3-1.0); Calcium 8.4 mg/dL (8.6-10.3); Globulin 3.1 g/dL (2.4-3.5); Magnesium 1.7 mg/dL (1.6-2.6); Total Protein 5.3 g/dL (6.4-8.9)
[2020-04-04] MEDS: Insulin LISPRO 300 UNITS/3 ML VIAL SUBQ SCH ×3 (08:43→17:11)
[2020-04-04] MEDS: Cholecalciferol (D-3) 1,000 UNIT (25MCG) TABLET PO SCH (08:55)
[2020-04-04] MEDS: gemfibroziL 600 MG TABLET PO SCH ×2 (08:56→19:41)
[2020-04-04] MEDS: Cyanocobalamin (B-12) 1,000 MCG TABLET PO SCH (08:56)
[2020-04-04] MEDS: Folic Acid 1 MG TABLET PO SCH (08:56)
[2020-04-04] MEDS: Multivit/Ca/Min/Fe/FA 1 TAB TABLET PO SCH (08:56)
[2020-04-04] MEDS: Apixaban 5 MG TABLET PO SCH ×2 (08:57→19:45)
[2020-04-04] MEDS: *HR* Glimepiride 4 MG TABLET PO SCH (08:57)
[2020-04-04] MEDS: Aspirin Enteric Coated 81 MG Tablet PO SCH (08:57)
[2020-04-04 08:58] LABS: Basophils % 0.2 %; Eosinophils # 0.4 K/mcL (0.0-0.6); Eosinophils % 2.7 %; Hematocrit 24.6 % (35.3-44.9); Hemoglobin 7.8 g/dL (11.5-15.4); Immature Granulocytes % 1.4 % (0-4); Lymphocytes # 1.6 K/mcL (0.6-4.6); Lymphocytes % 12.1 %; Mean Corpuscular HGB Conc 31.7 g/dL (31.6-35.5); Mean Corpuscular Hemoglobin 31.8 pg (28.0-33.3); Mean Corpuscular Volume 100.4 fL (83.0-100.0); Mean Platelet Volume 9.6 fL (9.4-12.4); Monocytes # 1.2 K/mcL (0.0-1.3); Nucleated Red Blood Cells 0.8 /100 WBC (0); Platelet Count 682 K/mcL (140-400); Red Blood Count 2.45 M/mcL (3.82-4.97); Red Cell Distribution Width 15.7 % (11.5-14.5); Segmented Neutrophils % 74.6 %; White Blood Count 13.2 K/mcL (4.3-11.1)
[2020-04-04 09:04] LABS: Neutrophils # 9.9 K/mcL (1.6-8.9)
[2020-04-04] MEDS: Nystatin SUSP 5 ML UD.LIQ PO SCH ×3 (13:51→19:45)
[2020-04-04] MEDS: Acetaminophen 325 MG TABLET PO PRN (19:41)
[2020-04-04] MEDS: tiZANidine 4 MG TABLET PO PRN (19:42)
[2020-04-05] MEDS: Insulin LISPRO 300 UNITS/3 ML VIAL SUBQ SCH ×5 (00:05→21:27)
[2020-04-05 06:02] LABS: Hematocrit 24.6 % (35.3-44.9); Hemoglobin 7.7 g/dL (11.5-15.4); Mean Corpuscular HGB Conc 31.3 g/dL (31.6-35.5); Mean Corpuscular Hemoglobin 31.6 pg (28.0-33.3); Mean Corpuscular Volume 100.8 fL (83.0-100.0); Mean Platelet Volume 9.8 fL (9.4-12.4); Platelet Count 659 K/mcL (140-400); Red Blood Count 2.44 M/mcL (3.82-4.97); Red Cell Distribution Width 15.6 % (11.5-14.5); White Blood Count 15.7 K/mcL (4.3-11.1)
[2020-04-05 06:18] LABS: Calcium 8.8 mg/dL (8.6-10.3); Potassium 4.8 mEq/L (3.5-5.1)
[2020-04-05] MEDS: Aspirin Enteric Coated 81 MG Tablet PO SCH (08:53)
[2020-04-05] MEDS: Apixaban 5 MG TABLET PO SCH ×2 (08:54→21:26)
[2020-04-05] MEDS: Nystatin SUSP 5 ML UD.LIQ PO SCH ×4 (09:11→21:27)
[2020-04-05] MEDS: Multivit/Ca/Min/Fe/FA 1 TAB TABLET PO SCH (09:12)
[2020-04-05] MEDS: gemfibroziL 600 MG TABLET PO SCH ×2 (09:12→21:26)
[2020-04-05] MEDS: Cholecalciferol (D-3) 1,000 UNIT (25MCG) TABLET PO SCH (09:12)
[2020-04-05] MEDS: *HR* Glimepiride 4 MG TABLET PO SCH (09:12)
[2020-04-05] MEDS: Folic Acid 1 MG TABLET PO SCH (09:12)
[2020-04-05] MEDS: Cyanocobalamin (B-12) 1,000 MCG TABLET PO SCH (09:12)
[2020-04-05 09:13] LABS: Folate > 22.3 ng/mL (3.0-16.0); Vitamin B12 1085 pg/mL (250-1100)
[2020-04-05] MEDS: Acetaminophen 325 MG TABLET PO PRN ×2 (10:46→23:15)
[2020-04-06 05:26] LABS: Hematocrit 24.6 % (35.3-44.9); Hemoglobin 7.6 g/dL (11.5-15.4); Mean Corpuscular HGB Conc 30.9 g/dL (31.6-35.5); Mean Corpuscular Volume 100.4 fL (83.0-100.0); Platelet Count 625 K/mcL (140-400); Red Blood Count 2.45 M/mcL (3.82-4.97); Red Cell Distribution Width 15.7 % (11.5-14.5); White Blood Count 18.4 K/mcL (4.3-11.1)
[2020-04-06 05:37] LABS: Calcium 8.2 mg/dL (8.6-10.3); Magnesium 1.6 mg/dL (1.6-2.6); Potassium 4.7 mEq/L (3.5-5.1)
[2020-04-06] MEDS: Insulin LISPRO 300 UNITS/3 ML VIAL SUBQ SCH ×4 (09:55→22:01)
[2020-04-06] MEDS: Cyanocobalamin (B-12) 1,000 MCG TABLET PO SCH (10:20)
[2020-04-06] MEDS: Nystatin SUSP 5 ML UD.LIQ PO SCH ×4 (10:20→22:00)
[2020-04-06] MEDS: Apixaban 5 MG TABLET PO SCH ×2 (10:20→21:59)
[2020-04-06] MEDS: *HR* Glimepiride 4 MG TABLET PO SCH (10:20)
[2020-04-06] MEDS: Folic Acid 1 MG TABLET PO SCH (10:20)
[2020-04-06] MEDS: Aspirin Enteric Coated 81 MG Tablet PO SCH (10:20)
[2020-04-06] MEDS: gemfibroziL 600 MG TABLET PO SCH ×2 (10:20→22:00)
[2020-04-06] MEDS: Cholecalciferol (D-3) 1,000 UNIT (25MCG) TABLET PO SCH (10:20)
[2020-04-06] MEDS: Multivit/Ca/Min/Fe/FA 1 TAB TABLET PO SCH (10:20)
[2020-04-06] MEDS: Acetaminophen 325 MG TABLET PO PRN ×2 (10:27→22:00)
[2020-04-06 12:36] LABS: Bilirubin,Urine Negative (Negative); Blood,Urine Trace-intact (Negative); Clarity,Urine Clear (Clear); Color,Urine Yellow (Yellow); Glucose,Urine (UA) 250 mg/dL (Normal); Ketones,Urine Negative (Negative); Leukocyte Esterase,Urine Trace (Negative); Nitrite,Urine Negative (Negative); Protein,Urine >=300 mg/dL (Neg-Trace); Specific Gravity,Urine 1.025 (1.010-1.025); Urobilinogen,Urine Normal (Normal)
[2020-04-06 12:43] LABS: Bacteria,Urine Many per hpf (None-Few); WBC,Urine 15-30 per hpf (0-3)
[2020-04-06] MEDS: Magic Mouthwash 10 ML UD Cup PO SCH (16:53)
[2020-04-06] MEDS: Nitrofurantoin (BID) 100 MG CAPSULE PO SCH (17:00)
[2020-04-07] MEDS: tiZANidine 4 MG TABLET PO PRN ×2 (00:05→20:53)
[2020-04-07 04:53] LABS: Hematocrit 22.5 % (35.3-44.9); Hemoglobin 6.9 g/dL (11.5-15.4); Mean Corpuscular HGB Conc 30.7 g/dL (31.6-35.5); Mean Corpuscular Hemoglobin 31.1 pg (28.0-33.3); Mean Corpuscular Volume 101.4 fL (83.0-100.0); Mean Platelet Volume 9.7 fL (9.4-12.4); Platelet Count 596 K/mcL (140-400); Red Blood Count 2.22 M/mcL (3.82-4.97); Red Cell Distribution Width 15.8 % (11.5-14.5); White Blood Count 14.9 K/mcL (4.3-11.1)
[2020-04-07 05:09] LABS: Albumin/Globulin Ratio 0.6 (1.1-2.2); Bilirubin,Total 0.1 mg/dL (0.3-1.0); Calcium 8.1 mg/dL (8.6-10.3); Globulin 3.1 g/dL (2.4-3.5); Magnesium 1.5 mg/dL (1.6-2.6); Potassium 4.8 mEq/L (3.5-5.1); Total Protein 5.1 g/dL (6.4-8.9)
[2020-04-07] MEDS: Insulin LISPRO 300 UNITS/3 ML VIAL SUBQ SCH ×4 (08:40→20:45)
[2020-04-07] MEDS: Multivit/Ca/Min/Fe/FA 1 TAB TABLET PO SCH (08:43)
[2020-04-07] MEDS: gemfibroziL 600 MG TABLET PO SCH ×2 (08:44→20:53)
[2020-04-07] MEDS: Cholecalciferol (D-3) 1,000 UNIT (25MCG) TABLET PO SCH (08:44)
[2020-04-07] MEDS: Aspirin Enteric Coated 81 MG Tablet PO SCH (08:44)
[2020-04-07] MEDS: Apixaban 5 MG TABLET PO SCH (08:44)
[2020-04-07] MEDS: Folic Acid 1 MG TABLET PO SCH (08:44)
[2020-04-07] MEDS: Nitrofurantoin (BID) 100 MG CAPSULE PO SCH ×2 (08:44→18:15)
[2020-04-07] MEDS: Cyanocobalamin (B-12) 1,000 MCG TABLET PO SCH (08:45)
[2020-04-07] MEDS: *HR* Glimepiride 4 MG TABLET PO SCH (08:51)
[2020-04-07] MEDS: Magic Mouthwash 10 ML UD Cup PO SCH ×3 (08:55→18:15)
[2020-04-07] MEDS: Nystatin SUSP 5 ML UD.LIQ PO SCH ×4 (08:55→20:57)
[2020-04-07 13:52] LABS: Hematocrit 24.7 % (35.3-44.9); Hemoglobin 7.6 g/dL (11.5-15.4); Mean Corpuscular HGB Conc 30.8 g/dL (31.6-35.5); Mean Corpuscular Hemoglobin 31.4 pg (28.0-33.3); Mean Corpuscular Volume 102.1 fL (83.0-100.0); Mean Platelet Volume 9.6 fL (9.4-12.4); Platelet Count 660 K/mcL (140-400); Red Blood Count 2.42 M/mcL (3.82-4.97); Red Cell Distribution Width 15.8 % (11.5-14.5); White Blood Count 12.8 K/mcL (4.3-11.1)
[2020-04-07] MEDS: Acetaminophen 325 MG TABLET PO PRN (20:54)
[2020-04-07] MEDS ORDERED: Apixaban 5 MG TABLET PO SCH (21:00)
[2020-04-08] MEDS: Insulin LISPRO 300 UNITS/3 ML VIAL SUBQ SCH ×4 (07:32→21:09)
[2020-04-08] MEDS: Aspirin Enteric Coated 81 MG Tablet PO SCH (09:06)
[2020-04-08] MEDS: Folic Acid 1 MG TABLET PO SCH (09:06)
[2020-04-08] MEDS: Cyanocobalamin (B-12) 1,000 MCG TABLET PO SCH (09:06)
[2020-04-08] MEDS: Magic Mouthwash 10 ML UD Cup PO SCH ×3 (09:07→19:20)
[2020-04-08] MEDS: *HR* Glimepiride 4 MG TABLET PO SCH (09:07)
[2020-04-08] MEDS: gemfibroziL 600 MG TABLET PO SCH ×2 (09:07→21:13)
[2020-04-08] MEDS: Nitrofurantoin (BID) 100 MG CAPSULE PO SCH ×2 (09:07→17:25)
[2020-04-08] MEDS: Cholecalciferol (D-3) 1,000 UNIT (25MCG) TABLET PO SCH (09:07)
[2020-04-08] MEDS: Apixaban 5 MG TABLET PO SCH ×2 (09:07→21:14)
[2020-04-08] MEDS: Nystatin SUSP 5 ML UD.LIQ PO SCH ×4 (09:07→21:16)
[2020-04-08] MEDS: Multivit/Ca/Min/Fe/FA 1 TAB TABLET PO SCH (09:07)
[2020-04-08] MEDS ORDERED: D5% in Water 1,000 ML IVC PRN (10:35)
[2020-04-08] MEDS ORDERED: Dextrose Gel 15 GM/37.5 ML TUBE PO PRN ×2 (10:35)
[2020-04-08] MEDS ORDERED: *HR* Dextrose 50 % in Water (Vial) 50 ML VIAL IVP PRN (10:35)
[2020-04-08 10:54] LABS: Basophils # 0.1 K/mcL (0.0-0.2); Basophils % 0.4 %; Eosinophils # 0.6 K/mcL (0.0-0.6); Eosinophils % 4.6 %; Hematocrit 22.9 % (35.3-44.9); Hemoglobin 7.1 g/dL (11.5-15.4); Immature Granulocytes % 2.2 % (0-4); Lymphocytes # 1.5 K/mcL (0.6-4.6); Lymphocytes % 10.7 %; Mean Corpuscular Hemoglobin 31.6 pg (28.0-33.3); Mean Corpuscular Volume 101.8 fL (83.0-100.0); Mean Platelet Volume 9.7 fL (9.4-12.4); Monocytes # 1.4 K/mcL (0.0-1.3); Monocytes % 9.9 %; Neutrophils # 9.9 K/mcL (1.6-8.9); Nucleated Red Blood Cells 0.7 /100 WBC (0); Platelet Count 675 K/mcL (140-400); Red Blood Count 2.25 M/mcL (3.82-4.97); Red Cell Distribution Width 15.9 % (11.5-14.5); Segmented Neutrophils % 72.2 %; White Blood Count 13.7 K/mcL (4.3-11.1)
[2020-04-08 11:06] LABS: Calcium 8.4 mg/dL (8.6-10.3); Magnesium 1.8 mg/dL (1.6-2.6)
[2020-04-08] MEDS: Acetaminophen 325 MG TABLET PO PRN ×2 (15:10→21:15)
[2020-04-08] MEDS: tiZANidine 4 MG TABLET PO PRN (21:15)
[2020-04-09] MEDS: gemfibroziL 600 MG TABLET PO SCH ×2 (09:16→20:53)
[2020-04-09] MEDS: Magic Mouthwash 10 ML UD Cup PO SCH ×3 (10:17→17:16)
[2020-04-09] MEDS: Aspirin Enteric Coated 81 MG Tablet PO SCH (10:26)
[2020-04-09] MEDS: Nystatin SUSP 5 ML UD.LIQ PO SCH ×4 (10:26→20:56)
[2020-04-09] MEDS: Acetaminophen 325 MG TABLET PO PRN ×2 (10:26→20:55)
[2020-04-09] MEDS: Cyanocobalamin (B-12) 1,000 MCG TABLET PO SCH (10:28)
[2020-04-09] MEDS: Folic Acid 1 MG TABLET PO SCH (10:28)
[2020-04-09] MEDS: Nitrofurantoin (BID) 100 MG CAPSULE PO SCH ×2 (10:28→17:18)
[2020-04-09] MEDS: Cholecalciferol (D-3) 1,000 UNIT (25MCG) TABLET PO SCH (10:28)
[2020-04-09] MEDS: Multivit/Ca/Min/Fe/FA 1 TAB TABLET PO SCH (10:28)
[2020-04-09] MEDS: *HR* Glimepiride 4 MG TABLET PO SCH (10:28)
[2020-04-09] MEDS: Apixaban 5 MG TABLET PO SCH ×2 (10:29→20:51)
[2020-04-09] MEDS: Insulin LISPRO 300 UNITS/3 ML VIAL SUBQ SCH ×4 (13:15→20:57)
[2020-04-09] MEDS: tiZANidine 4 MG TABLET PO PRN (20:53)
[2020-04-10 05:08] LABS: Basophils # 0.1 K/mcL (0.0-0.2); Basophils % 0.5 %; Eosinophils # 0.8 K/mcL (0.0-0.6); Eosinophils % 5.3 %; Hematocrit 26.3 % (35.3-44.9); Immature Granulocytes % 3.7 % (0-4); Lymphocytes % 13.4 %; Mean Corpuscular HGB Conc 30.4 g/dL (31.6-35.5); Mean Corpuscular Volume 101.9 fL (83.0-100.0); Mean Platelet Volume 9.6 fL (9.4-12.4); Monocytes # 1.6 K/mcL (0.0-1.3); Monocytes % 10.8 %; Nucleated Red Blood Cells 0.6 /100 WBC (0); Platelet Count 770 K/mcL (140-400); Red Blood Count 2.58 M/mcL (3.82-4.97); Red Cell Distribution Width 16.1 % (11.5-14.5); Segmented Neutrophils % 66.3 %
[2020-04-10 05:22] LABS: Calcium 8.7 mg/dL (8.6-10.3); Potassium 4.8 mEq/L (3.5-5.1)
[2020-04-10] MEDS: Aspirin Enteric Coated 81 MG Tablet PO SCH (08:46)
[2020-04-10] MEDS: Cholecalciferol (D-3) 1,000 UNIT (25MCG) TABLET PO SCH (08:47)
[2020-04-10] MEDS: Folic Acid 1 MG TABLET PO SCH (08:48)
[2020-04-10] MEDS: gemfibroziL 600 MG TABLET PO SCH ×2 (08:48→21:40)
[2020-04-10] MEDS: Multivit/Ca/Min/Fe/FA 1 TAB TABLET PO SCH (08:48)
[2020-04-10] MEDS: Cyanocobalamin (B-12) 1,000 MCG TABLET PO SCH (08:49)
[2020-04-10] MEDS: Nitrofurantoin (BID) 100 MG CAPSULE PO SCH ×2 (08:49→16:50)
[2020-04-10] MEDS: Apixaban 5 MG TABLET PO SCH ×2 (08:50→21:36)
[2020-04-10] MEDS: *HR* Glimepiride 4 MG TABLET PO SCH (08:52)
[2020-04-10] MEDS: Magic Mouthwash 10 ML UD Cup PO SCH ×3 (08:54→16:50)
[2020-04-10] MEDS: Nystatin SUSP 5 ML UD.LIQ PO SCH ×4 (08:54→21:40)
[2020-04-10] MEDS: Insulin LISPRO 300 UNITS/3 ML VIAL SUBQ SCH ×4 (09:55→21:26)
[2020-04-10] MEDS: Acetaminophen 325 MG TABLET PO PRN ×2 (15:11→21:37)
[2020-04-10] MEDS: tiZANidine 4 MG TABLET PO PRN (21:39)
[2020-04-11] MEDS: Insulin LISPRO 300 UNITS/3 ML VIAL SUBQ SCH ×4 (09:44→21:08)
[2020-04-11] MEDS: Nystatin SUSP 5 ML UD.LIQ PO SCH ×4 (09:47→21:07)
[2020-04-11] MEDS: Magic Mouthwash 10 ML UD Cup PO SCH ×3 (09:47→16:15)
[2020-04-11] MEDS: Aspirin Enteric Coated 81 MG Tablet PO SCH (09:47)
[2020-04-11] MEDS: Cyanocobalamin (B-12) 1,000 MCG TABLET PO SCH (09:48)
[2020-04-11] MEDS: Cholecalciferol (D-3) 1,000 UNIT (25MCG) TABLET PO SCH (09:48)
[2020-04-11] MEDS: Folic Acid 1 MG TABLET PO SCH (09:48)
[2020-04-11] MEDS: Nitrofurantoin (BID) 100 MG CAPSULE PO SCH ×2 (09:49→16:15)
[2020-04-11] MEDS: Apixaban 5 MG TABLET PO SCH ×2 (09:49→21:08)
[2020-04-11] MEDS: Multivit/Ca/Min/Fe/FA 1 TAB TABLET PO SCH (09:50)
[2020-04-11] MEDS: gemfibroziL 600 MG TABLET PO SCH ×2 (09:50→21:08)
[2020-04-11] MEDS: *HR* Glimepiride 4 MG TABLET PO SCH (09:50)
[2020-04-11] MEDS: Acetaminophen 325 MG TABLET PO PRN (16:15)
[2020-04-11] MEDS: tiZANidine 4 MG TABLET PO PRN (21:09)
[2020-04-12 06:05] LABS: Basophils # 0.1 K/mcL (0.0-0.2); Basophils % 0.8 %; Eosinophils # 0.8 K/mcL (0.0-0.6); Eosinophils % 5.6 %; Hematocrit 25.6 % (35.3-44.9); Hemoglobin 7.8 g/dL (11.5-15.4); Immature Granulocytes % 5.2 % (0-4); Lymphocytes % 12.3 %; Mean Corpuscular HGB Conc 30.5 g/dL (31.6-35.5); Mean Corpuscular Hemoglobin 31.3 pg (28.0-33.3); Mean Corpuscular Volume 102.8 fL (83.0-100.0); Mean Platelet Volume 9.7 fL (9.4-12.4); Monocytes # 1.5 K/mcL (0.0-1.3); Monocytes % 10.5 %; Neutrophils # 9.3 K/mcL (1.6-8.9); Nucleated Red Blood Cells 0.7 /100 WBC (0); Platelet Count 819 K/mcL (140-400); Red Blood Count 2.49 M/mcL (3.82-4.97); Red Cell Distribution Width 16.6 % (11.5-14.5); Segmented Neutrophils % 65.6 %; White Blood Count 14.2 K/mcL (4.3-11.1)
[2020-04-12 06:07] LABS: Lymphocytes # 1.8 K/mcL (0.6-4.6)
[2020-04-12 06:18] LABS: Platelet Estimate Increased (Normal)
[2020-04-12 06:19] LABS: Basophilic Stippling 1+ (Not Present); Macrocytosis Present (Not Present)
[2020-04-12 06:20] LABS: Howell-Jolly Bodies 1+ (Not Present)
[2020-04-12 06:23] LABS: Calcium 8.8 mg/dL (8.6-10.3); Potassium 4.7 mEq/L (3.5-5.1)
[2020-04-12] MEDS: Insulin LISPRO 300 UNITS/3 ML VIAL SUBQ SCH ×4 (09:08→21:08)
[2020-04-12] MEDS: Folic Acid 1 MG TABLET PO SCH (09:11)
[2020-04-12] MEDS: *HR* Glimepiride 4 MG TABLET PO SCH (09:11)
[2020-04-12] MEDS: Multivit/Ca/Min/Fe/FA 1 TAB TABLET PO SCH (09:11)
[2020-04-12] MEDS: Nystatin SUSP 5 ML UD.LIQ PO SCH ×4 (09:12→21:06)
[2020-04-12] MEDS: Nitrofurantoin (BID) 100 MG CAPSULE PO SCH ×2 (09:12→17:30)
[2020-04-12] MEDS: Aspirin Enteric Coated 81 MG Tablet PO SCH (09:12)
[2020-04-12] MEDS: Cyanocobalamin (B-12) 1,000 MCG TABLET PO SCH (09:12)
[2020-04-12] MEDS: Apixaban 5 MG TABLET PO SCH ×2 (09:12→21:07)
[2020-04-12] MEDS: Magic Mouthwash 10 ML UD Cup PO SCH ×3 (09:12→17:30)
[2020-04-12] MEDS: Cholecalciferol (D-3) 1,000 UNIT (25MCG) TABLET PO SCH (09:12)
[2020-04-12] MEDS: gemfibroziL 600 MG TABLET PO SCH ×2 (09:12→21:07)
[2020-04-12] MEDS: Acetaminophen 325 MG TABLET PO PRN (22:01)
[2020-04-13] MEDS: Insulin LISPRO 300 UNITS/3 ML VIAL SUBQ SCH ×4 (07:38→21:36)
[2020-04-13] MEDS: Magic Mouthwash 10 ML UD Cup PO SCH ×3 (08:15→17:35)
[2020-04-13] MEDS: Nitrofurantoin (BID) 100 MG CAPSULE PO SCH ×2 (08:16→17:35)
[2020-04-13] MEDS: *HR* Glimepiride 4 MG TABLET PO SCH (08:16)
[2020-04-13] MEDS: Multivit/Ca/Min/Fe/FA 1 TAB TABLET PO SCH (08:19)
[2020-04-13] MEDS: Folic Acid 1 MG TABLET PO SCH (08:19)
[2020-04-13] MEDS: Nystatin SUSP 5 ML UD.LIQ PO SCH ×4 (08:19→21:36)
[2020-04-13] MEDS: Cyanocobalamin (B-12) 1,000 MCG TABLET PO SCH (08:19)
[2020-04-13] MEDS: gemfibroziL 600 MG TABLET PO SCH ×2 (08:19→21:36)
[2020-04-13] MEDS: Cholecalciferol (D-3) 1,000 UNIT (25MCG) TABLET PO SCH (08:19)
[2020-04-13] MEDS: Aspirin Enteric Coated 81 MG Tablet PO SCH (08:19)
[2020-04-13] MEDS: Apixaban 5 MG TABLET PO SCH ×2 (08:19→21:35)
[2020-04-13] MEDS: Acetaminophen 325 MG TABLET PO PRN (21:36)
[2020-04-14] MEDS: Folic Acid 1 MG TABLET PO SCH (09:39)
[2020-04-14] MEDS: Aspirin Enteric Coated 81 MG Tablet PO SCH (09:39)
[2020-04-14] MEDS: Apixaban 5 MG TABLET PO SCH ×2 (09:39→20:44)
[2020-04-14] MEDS: Nystatin SUSP 5 ML UD.LIQ PO SCH ×2 (09:39→15:17)
[2020-04-14] MEDS: Cyanocobalamin (B-12) 1,000 MCG TABLET PO SCH (09:40)
[2020-04-14] MEDS: Multivit/Ca/Min/Fe/FA 1 TAB TABLET PO SCH (09:40)
[2020-04-14] MEDS: gemfibroziL 600 MG TABLET PO SCH ×2 (09:40→20:44)
[2020-04-14] MEDS: Cholecalciferol (D-3) 1,000 UNIT (25MCG) TABLET PO SCH (09:40)
[2020-04-14] MEDS: Magic Mouthwash 10 ML UD Cup PO SCH ×3 (09:41→17:05)
[2020-04-14] MEDS: Nitrofurantoin (BID) 100 MG CAPSULE PO SCH ×2 (09:41→17:05)
[2020-04-14] MEDS: *HR* Glimepiride 4 MG TABLET PO SCH (09:41)
[2020-04-14] MEDS: Insulin LISPRO 300 UNITS/3 ML VIAL SUBQ SCH ×4 (09:41→20:46)
[2020-04-14] MEDS: Acetaminophen 325 MG TABLET PO PRN (17:07)
[2020-04-15] MEDS: Insulin LISPRO 300 UNITS/3 ML VIAL SUBQ SCH ×4 (08:42→21:00)
[2020-04-15] MEDS: Magic Mouthwash 10 ML UD Cup PO SCH ×3 (09:22→16:41)
[2020-04-15] MEDS: gemfibroziL 600 MG TABLET PO SCH ×2 (09:22→20:58)
[2020-04-15] MEDS: Aspirin Enteric Coated 81 MG Tablet PO SCH (09:23)
[2020-04-15] MEDS: *HR* Glimepiride 4 MG TABLET PO SCH (09:23)
[2020-04-15] MEDS: Apixaban 5 MG TABLET PO SCH ×2 (09:23→20:58)
[2020-04-15] MEDS: Nitrofurantoin (BID) 100 MG CAPSULE PO SCH ×2 (09:24→16:41)
[2020-04-15] MEDS: Folic Acid 1 MG TABLET PO SCH (09:24)
[2020-04-15] MEDS: Multivit/Ca/Min/Fe/FA 1 TAB TABLET PO SCH (09:24)
[2020-04-15] MEDS: Cyanocobalamin (B-12) 1,000 MCG TABLET PO SCH (09:24)
[2020-04-15] MEDS: Cholecalciferol (D-3) 1,000 UNIT (25MCG) TABLET PO SCH (09:24)
[2020-04-15] MEDS: Acetaminophen 325 MG TABLET PO PRN (16:41)
[2020-04-16 05:58] LABS: Basophils # 0.1 K/mcL (0.0-0.2); Basophils % 0.6 %; Eosinophils # 0.9 K/mcL (0.0-0.6); Eosinophils % 5.2 %; Hemoglobin 8.5 g/dL (11.5-15.4); Lymphocytes % 12.3 %; Mean Corpuscular HGB Conc 30.4 g/dL (31.6-35.5); Mean Corpuscular Hemoglobin 31.1 pg (28.0-33.3); Mean Corpuscular Volume 102.6 fL (83.0-100.0); Mean Platelet Volume 10.2 fL (9.4-12.4); Monocytes % 11.8 %; Neutrophils # 11.1 K/mcL (1.6-8.9); Nucleated Red Blood Cells 0.5 /100 WBC (0); Platelet Count 908 K/mcL (140-400); Red Blood Count 2.73 M/mcL (3.82-4.97); Red Cell Distribution Width 16.3 % (11.5-14.5); Segmented Neutrophils % 67.1 %; White Blood Count 16.5 K/mcL (4.3-11.1)
[2020-04-16 06:01] LABS: Calcium 9.8 mg/dL (8.6-10.3)
[2020-04-16] MEDS: Cyanocobalamin (B-12) 1,000 MCG TABLET PO SCH (08:03)
[2020-04-16] MEDS: Nitrofurantoin (BID) 100 MG CAPSULE PO SCH ×2 (08:03→17:37)
[2020-04-16] MEDS: Folic Acid 1 MG TABLET PO SCH (08:03)
[2020-04-16] MEDS: Cholecalciferol (D-3) 1,000 UNIT (25MCG) TABLET PO SCH (08:03)
[2020-04-16] MEDS: Multivit/Ca/Min/Fe/FA 1 TAB TABLET PO SCH (08:03)
[2020-04-16] MEDS: Aspirin Enteric Coated 81 MG Tablet PO SCH (08:03)
[2020-04-16] MEDS: gemfibroziL 600 MG TABLET PO SCH ×2 (08:03→21:44)
[2020-04-16] MEDS: Apixaban 5 MG TABLET PO SCH ×2 (08:04→21:44)
[2020-04-16] MEDS: Magic Mouthwash 10 ML UD Cup PO SCH ×3 (08:04→18:51)
[2020-04-16] MEDS: Insulin LISPRO 300 UNITS/3 ML VIAL SUBQ SCH ×4 (08:21→21:45)
[2020-04-16] MEDS: Acetaminophen 325 MG TABLET PO PRN ×2 (09:50→21:44)
[2020-04-16] MEDS: *HR* Glimepiride 4 MG TABLET PO SCH (09:51)
[2020-04-17] MEDS: Insulin LISPRO 300 UNITS/3 ML VIAL SUBQ SCH ×4 (09:26→21:57)
[2020-04-17] MEDS: Magic Mouthwash 10 ML UD Cup PO SCH ×3 (09:26→17:50)
[2020-04-17] MEDS: gemfibroziL 600 MG TABLET PO SCH ×2 (09:27→21:57)
[2020-04-17] MEDS: Acetaminophen 325 MG TABLET PO PRN ×2 (09:27→21:57)
[2020-04-17] MEDS: Cholecalciferol (D-3) 1,000 UNIT (25MCG) TABLET PO SCH (09:27)
[2020-04-17] MEDS: *HR* Glimepiride 4 MG TABLET PO SCH (09:28)
[2020-04-17] MEDS: Multivit/Ca/Min/Fe/FA 1 TAB TABLET PO SCH (09:28)
[2020-04-17] MEDS: Folic Acid 1 MG TABLET PO SCH (09:28)
[2020-04-17] MEDS: Apixaban 5 MG TABLET PO SCH ×2 (09:28→21:57)
[2020-04-17] MEDS: Cyanocobalamin (B-12) 1,000 MCG TABLET PO SCH (09:28)
[2020-04-17] MEDS: Aspirin Enteric Coated 81 MG Tablet PO SCH (09:28)
[2020-04-18] MEDS: Magic Mouthwash 10 ML UD Cup PO SCH ×2 (08:01→12:32)
[2020-04-18] MEDS: Insulin LISPRO 300 UNITS/3 ML VIAL SUBQ SCH ×2 (08:02→12:32)
[2020-04-18] MEDS: Folic Acid 1 MG TABLET PO SCH (08:03)
[2020-04-18] MEDS: gemfibroziL 600 MG TABLET PO SCH (08:03)
[2020-04-18] MEDS: Cholecalciferol (D-3) 1,000 UNIT (25MCG) TABLET PO SCH (08:03)
[2020-04-18] MEDS: Multivit/Ca/Min/Fe/FA 1 TAB TABLET PO SCH (08:03)
[2020-04-18] MEDS: Cyanocobalamin (B-12) 1,000 MCG TABLET PO SCH (08:03)
[2020-04-18] MEDS: Apixaban 5 MG TABLET PO SCH (08:03)
[2020-04-18] MEDS: Aspirin Enteric Coated 81 MG Tablet PO SCH (08:03)
[2020-04-18] MEDS: *HR* Glimepiride 4 MG TABLET PO SCH (08:04)
[2020-04-18] MEDS: Acetaminophen 325 MG TABLET PO PRN (10:22)
[2020-04-18 12:38] VITALS: BP 124/79
== END 2020-04-18 14:00 | disposition home health service (06) | DRG 177 ==
LOC: INPGRE 12:11
PROVIDERS: ADMIT Family Medicine; ATTEND Family Medicine